=== PATIENT | male | born 1980 | race Caucasian/White ===

== ENCOUNTER 2016-09-09 11:29 | Emergency (ER) | payer OTHER ==
[~2016-09-09] VITALS: Ht 193 cm; Wt 149.9 kg
[~2016-09-09 11:29] MED LIST: ADVIN25/60 INH; ALBU0.08 INH; ALBUAER19 INH; ATOR-26 PO; CLC100 PO; DXY100 PO; EMPA1TAB3 PO; EPP3/2 IM; INSUINJ14 SC; INSUINJ4 SQ; LSN5 PO; OMEG10007 PO; OXYC5TAB PO; POLY1POW2 PO; PRD10 PO; PRT40 PO; SUCR1TAB29 PO; TRAM-10 PO
[2016-09-09 11:35] VITALS: TEMP 36.5; Ht 193 cm; Wt 149.9 kg
[2016-09-09] MEDS ORDERED: VNTHFA/IN INH (12:03)
[2016-09-09] MEDS ORDERED: DOCU100C31 PO (12:03)
[2016-09-09] MEDS ORDERED: OXYC-57 PO (12:03)
[2016-09-09] MEDS ORDERED: INSDGIPEN SQ (12:03)
[2016-09-09] MEDS ORDERED: NVLGI/PEN SQ (12:03)
[2016-09-09] MEDS ORDERED: PANT40TA PO (12:03)
--- NOTE | 2016-09-09 12:13 | DIAGNOSTIC IMAGING REPORT ---
CHEST ONE VIEW PORTABLE CLINICAL HISTORY: Shortness of breath. COMPARISON STUDY: Chest CT April 10, 2016. FINDINGS: Lung volumes are normal. There is no pneumothorax or pleural effusion. No consolidation is identified. There is no evidence of pulmonary edema. Cardiac size is within normal limits. IMPRESSION: No acute cardiopulmonary findings. Electronically signed by: Ran Gonzalez M.D. 09/09/2016 12:12 PM Dictated Date/Time: 09/09/2016 12:12 PM
[2016-09-09 12:21] LABS: BASO % 0.5 %; BASO ABS # 0.04 K/uL (0-0.2); COMPLETE YES; EOS % 1.9 %; HEMATOCRIT 44.3 % (42-52); IG% 0.1 %; LYMPH ABS # 2.91 K/uL (1.2-3.4); MEAN CELL VOLUME 82.5 fL (80-100); MEAN CORPUSCULAR HGB CONC 36.3 g/dl (32-36); MEAN PLATELET VOLUME 11.1 fL (7.4-10.4); MONO % 3.1 %; NEUT % 55.4 %; PLATELET COUNT 208 K/uL (130-400); RED BLOOD COUNT 5.37 M/uL (4.7-6.1); WHITE BLOOD COUNT 7.47 K/uL (4.8-10.8)
[2016-09-09 12:36] LABS: INR 0.9 (0.9-1.1); PARTIAL THROMBOPLASTIN RATIO 1.1; PROTHROMBIN TIME (PATIENT) 10.1 SECONDS (9.0-12.0)
[2016-09-09 12:37] VITALS: O2SAT 97
[2016-09-09] MEDS ORDERED: SODIUM CHLORIDE 0.9% 1000ML 1,000 ML IV STA ×2 (12:40→12:43)
[2016-09-09] MEDS ORDERED: KETOROLAC TROMETHAMINE 30 MG/ML VIAL IV STA (12:40)
[2016-09-09] MEDS ORDERED: ACETAMINOPHEN 500 MG TAB PO STA (12:40)
[2016-09-09] MEDS ORDERED: METHYLPREDNISOLONE 125 MG VIAL IV STA (12:43)
[2016-09-09 12:45] LABS: ALB/GLOB RATIO 1.2 (0.9-2); BUN/CREATININE RATIO 11.2 (10-20); CALCIUM 8.9 mg/dl (8.5-10.1); CREATININE 1.3 mg/dl (0.60-1.40); POTASSIUM 4.1 mmol/L (3.5-5.1)
[2016-09-09 12:57] LABS: BETA-HYDROXYBUTYRATE 0.71 mg/dL (0.2-2.81)
[2016-09-09] MEDS ORDERED: ALBUT/IPRATROP 3MG/0.5MG NEB 3 ML VIAL INH STA (13:11)
--- NOTE | 2016-09-09 13:29 | DIAGNOSTIC IMAGING REPORT ---
CT HEAD WITHOUT CONTRAST (CT) CLINICAL HISTORY: FELTON COMPARISON STUDY: 08/04/2015 TECHNIQUE: Axial CT of the brain is performed from the vertex to the skull base. IV contrast was not administered for this examination. CT DOSE: 1228.53 mGy.cm FINDINGS: No intra or extra-axial mass lesions are visualized. There is no CT evidence of acute cortical infarction. There is no evidence of midline shift. There is no acute hemorrhage. No calvarial fractures are visualized. There is no evidence of pathologic ventricular dilatation. There is no evidence of acute sinusitis IMPRESSION: Normal noncontrast head CT. Electronically signed by: Adal Pearl M.D. 09/09/2016 1:28 PM Dictated Date/Time: 09/09/2016 1:27 PM
[2016-09-09 13:44] LABS: URINE APPEARANCE CLEAR (CLEAR); URINE BILIRUBIN NEG (NEG); URINE COLOR YELLOW; URINE NITRITE NEG (NEG); URINE SPECIFIC GRAVITY 1.019 (1.000-1.030); UROBILINOGEN NEG (NEG)
[2016-09-09 13:47] LABS: MANUAL MICROSCOPIC REQUIRED? NO; REVIEW REQ? NO
[2016-09-09] MEDS ORDERED: INSULIN HUMAN REGULAR IV SCH ×2 (14:45→16:00)
[2016-09-09] MEDS ORDERED: PRED20TA PO (14:45)
[2016-09-09] MEDS ORDERED: NovoLIN-R INSULIN PER UNIT CHARGE ONE (14:52)
--- NOTE | 2016-09-09 14:59 | EMERGENCY ROOM VISIT NOTE ---
History Report prepared by Rene: Jean Flores Under the Supervision of: Dr. Dc Lucas M.D. First contact with patient: 12:37 Chief Complaint: RESPIRATORY PROBLEMS Stated Complaint: SEVERE FELTON, CHEST PAIN, SOB Nursing Triage Summary: Pt c/o headache all over worse in the back of head, started Thursday night, went 0 into Thursday and then yesterday it began again with pain in head and into neck and now it's into chest and making him SOB, used inhaler and it's not working. Associated pain in back. IDDM History of Present Illness The patient is a 36 year old male who presents to the Emergency Room with complaints of a persistent headache beginning about 2 days ago. He notes having chest pain, and shortness of breath, and adds that his pain shoot down his neck. The patient notes his symptoms are slightly relieved with laying down, and worsened with deep breaths. He notes using any inhaler at home, and took albuterol today with no relief of his symptoms. The patient admits to having diabetes, and takes insulin. Source of History: patient Onset: 2 days ago Position: head Quality: other (headache) Timing: other (persistent) Modifying Factors (Worsening): breathing (deep) Modifying Factors (Relieving): other (lying down) Associated Symptoms: + SOB, + chest pain Review of Systems See HPI for pertinent positives & negatives. A total of 10 systems reviewed and were otherwise negative. Past Medical & Surgical Medical Problems: (1) Asthma (2) Bee sting allergy (3) Bronchitis (4) Diabetes mellitus, type II (5) Dyslipidemia (6) Hypertension (7) Sleep apnea (8) Testicular discomfort (9) Tobacco use Family History Diabetes mellitus BROTHER Liver failure MOTHER Pericarditis MOTHER Stroke FATHER Social History Smoking Status: Never Smoker Alcohol Use: occasionally Marital Status: Housing Status: lives with family Occupation Status: employed Current/Historical Medications Scheduled Albuterol Hfa (Ventolin Hfa), 2-4 PUFFS INH Q6H Atorvastatin (Lipitor), 80 MG PO HS Docusate Sodium (Docusate Sodium), 100 MG PO DAILY Empagliflozin (Jardiance), 25 MG PO DAILY Epinephrine (Epipen), 0.3 MG IM UD Fish Oil ([place]-3), 1 CAP PO DAILY Fluticasone Prop/Salmeterol (Advair Diskus 250/50 60 Dose), 1 PUFF INH BID Insulin Aspart (Novolog Flexpen), UNITS SQ UD Insulin Glargine (Lantus Solostar), 60 UNITS SQ BID Pantoprazole (Protonix), 40 MG PO DAILY Prednisone (Prednisone), 20 MG PO DAILY Sucralfate (Carafate), 1 GM PO BID Scheduled PRN Oxycodone/Acetaminophen 5MG/325MG (Percocet 5MG/325MG), 1 TABLET PO Q6H PRN for Pain Polyethylene Glycol 3350 (Bulk (Polyethylene Glycol 3350), 17 GM PO TID PRN for Constipation Tramadol (Ultram), 100 MG PO Q8 PRN for Pain Allergies Coded Allergies: BEE STING (Verified Allergy, Severe, ANAPHYLAXIS, 09/09/16) Metformin (Verified Allergy, Unknown, unknown, 09/09/16) Physical Exam Vital Signs Date Time Temp Pulse Resp B/P Pulse Ox O2 Delivery O2 Flow Rate FiO2 09/09/16 15:00 94 12 153/86 94 09/09/16 13:02 89 18 124/86 95 Room Air 09/09/16 12:37 97 Room Air 09/09/16 12:06 93 09/09/16 11:49 98 Room Air 09/09/16 11:49 96 19 99 Room Air 09/09/16 11:40 96 Room Air 09/09/16 11:35 36.5 100 22 139/93 97 Room Air Physical Exam CONSTITUTIONAL: The patient is in mild distress. HEENT: No icterus, moist mucous membranes NECK: No meningismus, trachea is midline. CARDIOVASCULAR: Regular rate, normal perfusion RESPIRATORY: Wheezing in all lees. GASTROINTESTINAL: Non-tender GENITOURINARY: No flank tenderness MUSCULOSKELETAL: Full range of motion NEUROLOGIC: No acute gross focal deficits. PSYCHIATRIC: Normal affect SKIN: Normal for ethnicity. Medical Decision & Procedures ER Provider Diagnostic Interpretation: Radiology results as stated below per my review and radiologist interpretation. CT HEAD WITHOUT CONTRAST (CT) FINDINGS: No intra or extra-axial mass lesions are visualized. There is no CT evidence of acute cortical infarction. There is no evidence of midline shift. There is no acute hemorrhage. No calvarial fractures are visualized. There is no evidence of pathologic ventricular dilatation. There is no evidence of acute sinusitis IMPRESSION: Normal noncontrast head CT. Electronically signed by: Adal Pearl M.D. 09/09/2016 1:28 PM Dictated Date/Time: 09/09/2016 1:27 PM CHEST ONE VIEW PORTABLE FINDINGS: Lung volumes are normal. There is no pneumothorax or pleural effusion. No consolidation is identified. There is no evidence of pulmonary edema. Cardiac size is within normal limits. IMPRESSION: No acute cardiopulmonary findings. Electronically signed by: Ran Gonzalez M.D. 09/09/2016 12:12 PM Dictated Date/Time: 09/09/2016 12:12 PM Laboratory Results 09/09/16 12:05 Red Blood Count 5.37, Mean Corpuscular Volume 82.5, Mean Corpuscular Hemoglobin 30.0, Mean Corpuscular Hemoglobin Concent 36.3, Mean Platelet Volume 11.1, Neutrophils (%) (Auto) 55.4, Lymphocytes (%) (Auto) 39.0, Monocytes (%) (Auto) 3.1, Eosinophils (%) (Auto) 1.9, Basophils (%) (Auto) 0.5, Neutrophils # (Auto) 4.14, Lymphocytes # (Auto) 2.91, Monocytes # (Auto) 0.23, Eosinophils # (Auto) 0.14, Basophils # (Auto) 0.04 09/09/16 12:05 Test 09/09/16 12:05 09/09/16 12:10 09/09/16 13:00 09/09/16 13:09 White Blood Count 7.47 K/uL (4.8-10.8) Red Blood Count 5.37 M/uL (4.7-6.1) Hemoglobin 16.1 g/dL (14.0-18.0) Hematocrit 44.3 % (42-52) Mean Corpuscular Volume 82.5 fL (80-100) Mean Corpuscular Hemoglobin 30.0 pg (25-34) Mean Corpuscular Hemoglobin Concent 36.3 g/dl (32-36) Platelet Count 208 K/uL (130-400) Mean Platelet Volume 11.1 fL (7.4-10.4) Neutrophils (%) (Auto) 55.4 % Lymphocytes (%) (Auto) 39.0 % Monocytes (%) (Auto) 3.1 % Eosinophils (%) (Auto) 1.9 % Basophils (%) (Auto) 0.5 % Neutrophils # (Auto) 4.14 K/uL (1.4-6.5) Lymphocytes # (Auto) 2.91 K/uL (1.2-3.4) Monocytes # (Auto) 0.23 K/uL (0.11-0.59) Eosinophils # (Auto) 0.14 K/uL (0-0.5) Basophils # (Auto) 0.04 K/uL (0-0.2) RDW Standard Deviation 37.2 fL (36.4-46.3) RDW Coefficient of Variation 12.4 % (11.5-14.5) Immature Granulocyte % (Auto) 0.1 % Immature Granulocyte # (Auto) 0.01 K/uL (0.00-0.02) Prothrombin Time 10.1 SECONDS (9.0-12.0) Prothromb Time International Ratio 0.9 (0.9-1.1) Activated Partial Thromboplast Time 28.7 SECONDS (21.0-31.0) Partial Thromboplastin Ratio 1.1 D-Dimer < 190 ug/L FEU (0-500) Anion Gap 11.0 mmol/L (3-11) Est Creatinine Clear Calc Drug Dose 125.7 ml/min Estimated GFR () 81.9 Estimated GFR (Non- 70.7 BUN/Creatinine Ratio 11.2 (10-20) Calcium Level 8.9 mg/dl (8.5-10.1) Total Bilirubin 0.5 mg/dl (0.2-1) Aspartate Amino Transf (AST/SGOT) 19 U/L (15-37) Alanine Aminotransferase (ALT/SGPT) 45 U/L (12-78) Alkaline Phosphatase 109 U/L (45-117) Total Creatine Kinase 100 U/L (39-308) Total Protein 7.6 gm/dl (6.4-8.2) Albumin 4.2 gm/dl (3.4-5.0) Globulin 3.4 gm/dl (2.5-4.0) Albumin/Globulin Ratio 1.2 (0.9-2) Beta-Hydroxybutyric Acid 0.71 mg/dL (0.2-2.81) Chemistry Specimen Hemolysis Bedside Troponin I 0.000 ng/ml (0-0.045) Urine Color YELLOW Urine Appearance CLEAR (CLEAR) Urine pH 5.0 (4.5-7.5) Urine Specific [place] 1.019 (1.000-1.030) Urine Protein NEG (NEG) Urine Glucose (UA) 3+ (NEG) Urine Ketones NEG (NEG) Urine Occult Blood NEG (NEG) Urine Nitrite NEG (NEG) Urine Bilirubin NEG (NEG) Urine Urobilinogen NEG (NEG) Urine Leukocyte Esterase NEG (NEG) Influenza Type A Antigen Neg for Influ A (NEG) Influenza Type B Antigen Neg for Influ B (NEG) Labs reviewed by ED physician. Medications Administered Medications (Trade) Dose Ordered Sig/Ca Route Start Time Stop Time Status Last Admin Dose Admin Sodium Chloride (Nss 1000ml) 1,000 ml @ 0 mls/hr Q0M STAT IV 09/09/16 12:40 09/09/16 12:43 DC 09/09/16 13:00 999 MLS/HR Acetaminophen (Tylenol Tab) 1,000 mg NOW STAT PO 09/09/16 12:40 09/09/16 12:43 DC 09/09/16 12:58 1,000 MG Ketorolac Tromethamine (Toradol Inj) 30 mg NOW STAT IV 09/09/16 12:40 09/09/16 12:44 DC 09/09/16 12:58 30 MG Methylprednisolone Sodium Succinate 125 mg 125 mg NOW STAT IV 09/09/16 12:43 09/09/16 12:44 DC 09/09/16 12:57 125 MG Sodium Chloride (Nss 1000ml) 1,000 ml @ 0 mls/hr Q0M STAT IV 09/09/16 12:43 09/09/16 12:45 DC 09/09/16 13:29 999 MLS/HR Insulin Human Regular (novoLIN-R) 4 units ACHS IV 09/09/16 16:00 09/09/16 16:04 DC 09/09/16 14:58 4 UNITS Albuterol/ Ipratropium (Duoneb) 3 ml QIDR STAT INH 09/09/16 13:11 09/09/16 13:12 DC 09/09/16 13:28 3 ML ECG Indication: other (headache) Rate (beats per minute): 97 Rhythm: sinus rhythm Findings: nonspecific-ST abn, no ectopy, other (normal axis) ED Course 1239: Past medical records reviewed. The patient was evaluated in room B11B. A complete history and physical examination was performed. 1240: Ordered Toradol Inj 30 mg IV, Tylenol Tab 1,000 mg PO, and NSS 1,000 ml @ 0 mls/hr Wide Open IV. 1243: Ordered NSS 1,000 ml @ 0 mls/hr Wide Open IV, and Solu-Medrol IV 125 mg IV. 1311: Ordered Duoneb 3 ml INH. 1445: Ordered Insulin Human Regular 4 units IV. 1450: Upon reexamination the patient is doing well. I discussed results and treatment plan with the patient. He verbalizes agreement and understanding. The patient is ready for discharge. 1600: Ordered Insulin Human Regular 4 units IV, and Duoben 3 ml INH. Medical Decision Differentials include viral syndrome. 36-year-old presented to emergency department for complaints consistent with viral syndrome including especially strong headache without focal neurologic complaints. Mild wheezing noted on exam at the use of occasional albuterol MDI as needed at home. Given site Medrol IV and counseled regarding monitoring of his glucose at home the context of his diabetes. Rx prednisone. Impression Primary Impression: Viral syndrome Additional Impression: Wheezing Scribe Attestation The scribe's documentation has been prepared under my direction and personally reviewed by me in its entirety. I confirm that the note above accurately reflects all work, treatment, procedures, and medical decision making performed by me. Departure Information Dispostion Home / Self-Care Prescriptions Prednisone (Prednisone) 20 Mg Tab 20 MG PO DAILY for 4 Days, #4 TAB Prov: Dc Lucas MD 09/09/16 Referrals Kannan Bautista M.D. (PCP) Forms WORK / SCHOOL INSTRUCTIONS, HOME CARE DOCUMENTATION FORM, IMPORTANT VISIT INFORMATION Patient Instructions My [facility], ED Wheezing, ED URI Viral Problem Qualifiers
[2016-09-09 15:00] VITALS: BP 153/86; PULSE 94; O2SAT 94
[2016-09-09] MEDS ORDERED: ALBUT/IPRATROP 3MG/0.5MG NEB 3 ML VIAL INH SCH (16:00)
[2016-10-18] MEDS ORDERED: NCDT21 TD (14:27)
[2016-10-18] MEDS ORDERED: OXYC-57 PO (14:27)
== END 2016-09-09 15:06 | disposition home or self-care (01) ==
LOC: C.EDB 11:30
DX: B34.9 Viral infection, unspecified (principal); R06.2 Wheezing; E11.9 Type 2 diabetes mellitus without complications; I10 Essential (primary) hypertension; E78.5 Hyperlipidemia, unspecified; Z79.899 Other long term (current) drug therapy; Z79.4 Long term (current) use of insulin; Z83.3 Family history of diabetes mellitus; Z83.79 Family history of other diseases of the digestive system; Z82.49 Family history of ischemic heart disease and other diseases of the circulatory system; Z82.3 Family history of stroke

== ENCOUNTER 2016-10-07 00:40 | Emergency (ER) | payer OTHER ==
[~2016-10-07] VITALS: Ht 193 cm; Wt 145.5 kg
[~2016-10-07 00:40] MED LIST changes: -ALBU0.08 INH; -ALBUAER19 INH; -CLC100 PO; +DOCU100C31 PO; -DXY100 PO; +INSDGIPEN SQ; -INSUINJ14 SC; -INSUINJ4 SQ; -LSN5 PO; +NVLGI/PEN SQ; +OXYC-57 PO; -OXYC5TAB PO; +PANT40TA PO; -PRD10 PO; -PRT40 PO; +VNTHFA/IN INH
[2016-10-07 00:46] VITALS: Ht 193 cm; Wt 145.5 kg
[2016-10-07] MEDS ORDERED: MoRPHine SULFATE 4 MG/ML 1 ML CARP\\VIAL IV STA ×2 (00:55→02:33)
[2016-10-07] MEDS ORDERED: ONDANSETRON INJ 2 MG/ML 2 ML VIAL IV STA (00:55)
[2016-10-07] MEDS ORDERED: SODIUM CHLORIDE 0.9% 1000ML 1,000 ML IV STA ×2 (00:55→02:18)
[2016-10-07 01:59] LABS: HEMATOCRIT 45.8 % (42-52); MEAN CELL VOLUME 82.7 fL (80-100); MEAN CORPUSCULAR HEMOGLOBIN 30.9 pg (25-34); MEAN CORPUSCULAR HGB CONC 37.3 g/dl (32-36); MEAN PLATELET VOLUME 11.5 fL (7.4-10.4); PLATELET COUNT 208 K/uL (130-400); RED BLOOD COUNT 5.54 M/uL (4.7-6.1); WHITE BLOOD COUNT 6.95 K/uL (4.8-10.8)
[2016-10-07 02:03] LABS: BASO % 0.6 %; BASO ABS # 0.04 K/uL (0-0.2); COMPLETE YES; EOS % 2.2 %; IG% 0.3 %; LYMPH % 38.6 %; LYMPH ABS # 2.68 K/uL (1.2-3.4); MONO % 3.9 %; NEUT % 54.4 %
[2016-10-07 02:15] LABS: ALKALINE PHOSPHATASE 144 U/L (45-117); ALT/SGPT 56 U/L (12-78); BLOOD UREA NITROGEN 18 mg/dl (7-18); BUN/CREATININE RATIO 12.1 (10-20); CALCIUM 9.4 mg/dl (8.5-10.1); CARBON DIOXIDE 23 mmol/L (21-32); CHLORIDE 96 mmol/L (98-107); GLUCOSE 409 mg/dl (70-99); SODIUM 135 mmol/L (136-145)
[2016-10-07 02:27] LABS: BETA-HYDROXYBUTYRATE 1.54 mg/dL (0.2-2.81)
[2016-10-07 03:14] LABS: AST/SGOT 20 U/L (15-37); POTASSIUM 4.3 mmol/L (3.5-5.1)
[2016-10-07] MEDS ORDERED: NovoLIN-R INSULIN PER UNIT CHARGE SC STA (03:20)
[2016-10-07] MEDS ORDERED: OXYCODONE IR HOME PACK PO ONE (03:45)
[2016-10-07] MEDS ORDERED: ONDANSETRON HOME PACK 4MG OD TAB PO ONE (03:45)
--- NOTE | 2016-10-07 04:12 | EMERGENCY ROOM VISIT NOTE ---
History First contact with patient: 00:52 Chief Complaint: ABDOMINAL PAIN Stated Complaint: UPPER ABD PAIN, VOMITING, DIARRHEA, BACK PAIN History of Present Illness The patient is a 36 year old male who presents to the Emergency Room with complaints of nausea, vomiting, diarrhea and right upper quadrant pain for the past day. Patient still has gallbladder. He describes pain as aching, ranging in severity 7 out of 10. Worse with eating and better with rest. Patient states his blood sugars were in the 600s today. Patient denies chest pain, dyspnea, cough, congestion, urinary symptoms. No blood or black in the vomit or stool. Review of Systems See HPI for pertinent positives & negatives. A total of 10 systems reviewed and were otherwise negative. Past Medical/Surgical History Medical Problems: (1) Asthma (2) Bee sting allergy (3) Bronchitis (4) Diabetes mellitus, type II (5) Dyslipidemia (6) Hypertension (7) Sleep apnea (8) Testicular discomfort (9) Tobacco use Family History Diabetes mellitus BROTHER Liver failure MOTHER Pericarditis MOTHER Stroke FATHER Social History Smoking Status: Current Every Day Smoker Alcohol Use: occasionally Marital Status: Housing Status: lives with family Occupation Status: employed Current/Historical Medications Scheduled Albuterol Hfa (Ventolin Hfa), 2 PUFFS INH Q6H Atorvastatin (Lipitor), 80 MG PO HS Docusate Sodium (Docusate Sodium), 100 MG PO DAILY Empagliflozin (Jardiance), 25 MG PO DAILY Epinephrine (Epipen), 0.3 MG IM UD Fish Oil ([place]-3), 1 CAP PO DAILY Fluticasone Prop/Salmeterol (Advair Diskus 250/50 60 Dose), 1 PUFF INH BID Insulin Aspart (Novolog Flexpen), UNITS SQ UD Insulin Glargine (Lantus Solostar), 60 UNITS SQ BID Pantoprazole (Protonix), 40 MG PO DAILY Sucralfate (Carafate), 1 GM PO BID Scheduled PRN Oxycodone/Acetaminophen 5MG/325MG (Percocet 5MG/325MG), 1 TABLET PO Q6H PRN for Pain Polyethylene Glycol 3350 (Bulk (Polyethylene Glycol 3350), 17 GM PO TID PRN for Constipation Tramadol (Ultram), 100 MG PO Q8 PRN for Pain Allergies Coded Allergies: BEE STING (Verified Allergy, Severe, ANAPHYLAXIS, 10/07/16) Metformin (Verified Allergy, Unknown, unknown, 10/07/16) Physical Exam Vital Signs Date Time Temp Pulse Resp B/P Pulse Ox O2 Delivery O2 Flow Rate FiO2 10/07/16 02:32 94 18 125/81 95 Room Air 10/07/16 01:19 98 10/07/16 01:13 Room Air 10/07/16 01:13 Room Air 10/07/16 00:46 36.6 104 20 140/103 96 Room Air Physical Exam VITALS: Vitals are noted on the nurse's note and reviewed by myself. Vital signs stable. GENERAL: White male, in no acute distress, nondiaphoretic, well-developed well- nourished. SKIN: The skin was without rashes, erythema, edema, or bruising. There is no tenting of the skin. Capillary reflex less than 2 seconds. HEAD: Normocephalic atraumatic. EARS: External auditory canals clear, tympanic membranes pearly guerrier without erythema or effusion bilaterally. EYES: Pupils equal round and reactive to light and accommodation. Conjunctivae without injection, sclerae without icterus. Extraocular movements intact. NOSE: Patent, turbinates without inflammation or discharge. MOUTH: Mucous membranes mildly dry. Pharynx without erythema or exudate. Uvula midline. Airway patent. Tongue does not deviate. NECK: Supple without nuchal rigidity. No lymphadenopathy. No thyromegaly. Cervical spine is nontender. No JVD. HEART: Regular rate and rhythm LUNGS: Clear to auscultation bilaterally without wheezes, rales or rhonchi. No dullness to percussion. No retractions or accessory muscle use. ABDOMEN: Positive bowel sounds x 4. Normal tympanic percussion. Soft, protuberant, obese, tender to palpation right upper quadrant, without masses or organomegaly. No CVA tenderness. No guarding or rebound tenderness. MUSCULOSKELETAL: No muscle atrophy, erythema, noted. NEURO: Patient was alert and oriented to person place and time. Normal sensation to light and sharp touch. No focal neurological deficits. Medical Decision & Procedures Laboratory Results 10/07/16 01:10 Red Blood Count 5.54, Mean Corpuscular Volume 82.7, Mean Corpuscular Hemoglobin 30.9, Mean Corpuscular Hemoglobin Concent 37.3, Mean Platelet Volume 11.5, Neutrophils (%) (Auto) 54.4, Lymphocytes (%) (Auto) 38.6, Monocytes (%) (Auto) 3.9, Eosinophils (%) (Auto) 2.2, Basophils (%) (Auto) 0.6, Neutrophils # (Auto) 3.79, Lymphocytes # (Auto) 2.68, Monocytes # (Auto) 0.27, Eosinophils # (Auto) 0.15, Basophils # (Auto) 0.04 10/07/16 01:10 10/07/16 02:30 Test 10/07/16 01:10 10/07/16 02:30 10/07/16 03:52 White Blood Count 6.95 K/uL (4.8-10.8) Red Blood Count 5.54 M/uL (4.7-6.1) Hemoglobin 17.1 g/dL (14.0-18.0) Hematocrit 45.8 % (42-52) Mean Corpuscular Volume 82.7 fL (80-100) Mean Corpuscular Hemoglobin 30.9 pg (25-34) Mean Corpuscular Hemoglobin Concent 37.3 g/dl (32-36) Platelet Count 208 K/uL (130-400) Mean Platelet Volume 11.5 fL (7.4-10.4) Neutrophils (%) (Auto) 54.4 % Lymphocytes (%) (Auto) 38.6 % Monocytes (%) (Auto) 3.9 % Eosinophils (%) (Auto) 2.2 % Basophils (%) (Auto) 0.6 % Neutrophils # (Auto) 3.79 K/uL (1.4-6.5) Lymphocytes # (Auto) 2.68 K/uL (1.2-3.4) Monocytes # (Auto) 0.27 K/uL (0.11-0.59) Eosinophils # (Auto) 0.15 K/uL (0-0.5) Basophils # (Auto) 0.04 K/uL (0-0.2) RDW Standard Deviation 36.8 fL (36.4-46.3) RDW Coefficient of Variation 12.2 % (11.5-14.5) Immature Granulocyte % (Auto) 0.3 % Immature Granulocyte # (Auto) 0.02 K/uL (0.00-0.02) Red Blood Cell Morphology Unremarkable Anion Gap 16.0 mmol/L (3-11) Est Creatinine Clear Calc Drug Dose 107.2 ml/min Estimated GFR () 68.9 Estimated GFR (Non- 59.5 BUN/Creatinine Ratio 12.1 (10-20) Calcium Level 9.4 mg/dl (8.5-10.1) Total Bilirubin 0.4 mg/dl (0.2-1) Alanine Aminotransferase (ALT/SGPT) 56 U/L (12-78) Alkaline Phosphatase 144 U/L (45-117) Troponin I < 0.015 ng/ml (0-0.045) Total Protein 7.9 gm/dl (6.4-8.2) Albumin 4.2 gm/dl (3.4-5.0) Lipase 134 U/L (73-393) Beta-Hydroxybutyric Acid 1.54 mg/dL (0.2-2.81) Direct Bilirubin < 0.1 mg/dl (0-0.2) Aspartate Amino Transf (AST/SGOT) 20 U/L (15-37) Bedside Glucose 286 mg/dl (70-99) Medications Administered Medications (Trade) Dose Ordered Sig/Ca Route Start Time Stop Time Status Last Admin Dose Admin Sodium Chloride (Nss 1000ml) 1,000 ml @ 999 mls/hr Q1H1M STAT IV 10/07/16 00:55 10/07/16 01:55 DC 10/07/16 01:16 999 MLS/HR Ondansetron HCl (Zofran Inj) 4 mg NOW STAT IV 10/07/16 00:55 10/07/16 00:57 DC 10/07/16 01:16 4 MG Morphine Sulfate 4 mg 4 mg NOW STAT IV 10/07/16 00:55 10/07/16 00:57 DC 10/07/16 01:16 4 MG Sodium Chloride (Nss 1000ml) 1,000 ml @ 999 mls/hr Q1H1M STAT IV 10/07/16 02:18 10/07/16 03:18 DC 10/07/16 02:22 999 MLS/HR Morphine Sulfate (MoRPHine SULFATE INJ) 4 mg NOW STAT IV 10/07/16 02:33 10/07/16 02:34 DC 10/07/16 03:04 4 MG Insulin Human Regular (novoLIN-R U-100 PER UNIT) 10 units NOW STAT SC 10/07/16 03:20 10/07/16 03:21 DC 10/07/16 03:33 10 UNITS ED Course Prior records/ancillary studies reviewed. Triage Nursing notes reviewed. Additional history obtained from family The patient's history was concerning for abdominal pain. Differential diagnosis: Etiologies such as appendicitis, diverticulitis, PUD, biliary pathology, UTI, pancreatitis, obstruction, mesenteric ischemia, aortic pathology, infections, inflammatory bowel disease, renal colic, as well as others were entertained. Physical examination findings: As above. ER treatment provided: Morphine, Zofran, IV fluids On reassessment the patient felt better. Diagnostics interpreted by me: ECG: Normal sinus, normal intervals, no acute ST-T wave changes. Impression normal sinus rhythm interpreted by myself The labs revealed hyperglycemia without DKA Imaging studies: US RUQ: Compared to abdominal ultrasound 12/22/2015 Limited by narrow sonographic window. Gallbladder sludge. No evidence of acute cholecystitis. No intra-or extrahepatic biliary ductal dilation. Marked hepatomegaly. Increased hepatic echogenicity, can be seen in hepatic steatosis. No right hydronephrosis. No right upper quadrant free fluid. Radiologist: Jessi Chilel M.D. Chest x-ray with no acute consolidation or pneumothorax or free air per my interpretation Exam and history seem consistent with biliary colic with hyperglycemia without DKA. Patient was advised to get high the scan scheduled outpatient. He's had multiple CT scans. He feels much better now. He was no longer vomiting. He was advised to monitor his blood sugars. He was advised to return to the ER immediately for severe pain, fevers, vomiting, worsening signs or symptoms or as needed. Patient did not have a white count. No elevated T bili or LFTs. By the evaluation outlined above emergent etiologies such as appendicitis, diverticulitis, PUD, UTI, pancreatitis, obstruction, mesenteric ischemia, aortic pathology, infections, inflammatory bowel disease, renal colic, as well as others were deemed relatively unlikely. The pt informed about the findings as listed above. All questions were answered and pleased with the treatment. Return instructions were outlined and the patient was discharged in stable condition. Outpatient prescription management: zofran Referral: The patient was referred back to their primary care physician for follow-up in 2 to 3 days for a recheck of the current condition. Case reviewed with my attending Medical Decision As above Impression Primary Impression: Biliary colic Additional Impression: Nausea vomiting and diarrhea Departure Information Dispostion Home / Self-Care Condition GOOD Referrals Kannan Bautista M.D. (PCP) Patient Instructions My [facility] Additional Instructions DO NOT drive, drink alcohol, operate machinery, or perform dangerous activities today. You were given medications in the ER that can affect your ability to safely function or operate a vehicle. Ibuprofen(Motrin, Advil) may be used for fever or pain. Use 600mg every six hours as needed. Take with food. Avoid using more than 2400mg in a 24 hour period. Do not use 2400mg per day for more than three consecutive days without physician direction. Prolonged inappropriate use can lead to stomach upset or ulcers. (AND/OR) Acetaminophen(Tylenol) may be used for fever or pain. Use 1000mg every six hours as needed. Avoid using more than 3000mg in a 24 hour period. Zofran 4mg: Take one every six hours as needed for nausea. Avoid alcohol, operating machinery or dangerous equipment, working on ladders or roofs, DRIVING , or situations where being under the influence may be dangerous. Rest and drink plenty of fluids as tolerated. Slow sips of water or sports drinks are recommended instead of large amounts all at once. Continue current medications. Once your stomach is settled start with a clear liquid diet (jello, soup broth, etc.) and then advance as tolerated. You should avoid full, heavy meals for about 24 hrs from the time your symptoms resolved. Return to the ER immediately for worsening or persistent abdominal pain, vomiting, fevers, chest pains, difficulty breathing, black or bloody stools, worsening of your condition, or as needed. Follow up with your primary physician in 24 hours for a recheck of your current condition and for outpatient HIDA scan for further workup on your gallbladder. Problem Qualifiers
[2016-10-07 04:19] VITALS: BP 136/79; PULSE 90; TEMP 36.7; O2SAT 94
--- NOTE | 2016-10-07 06:40 | DIAGNOSTIC IMAGING REPORT ---
BILIARY ULTRASOUND CLINICAL HISTORY: Right upper quadrant abdominal pain COMPARISON STUDY: 12/22/2015 FINDINGS: The pancreas is partially obscured overlying bowel gas. No hepatic masses are visualized. The liver is of increased echogenicity, nonspecific finding most often seen in hepatic steatosis. There is no ductal dilatation. The common buttock measures 4 mm. No gallstones are visualized. There is a small amount of sludge in the gallbladder. There is no right-sided hydronephrosis. The study was difficult from a technical standpoint due to the patient's large body habitus. IMPRESSION: 1. Hepatomegaly and increased hepatic echogenicity, a finding likely secondary to hepatic steatosis 2. Sludge in the gallbladder. No shadowing calculi identified 3. No evidence of ductal dilatation. Electronically signed by: Adal Pearl M.D. 10/07/2016 6:38 AM Dictated Date/Time: 10/07/2016 6:37 AM
--- NOTE | 2016-10-07 07:17 | DIAGNOSTIC IMAGING REPORT ---
CHEST ONE VIEW PORTABLE CLINICAL HISTORY: Atypical chest pain. Right upper quadrant abdominal pain. COMPARISON STUDY: September 09, 2016 FINDINGS: The cardiac and mediastinal contours are normal. There is no evidence of focal pulmonary consolidation. There is no evidence of failure. No pleural effusions are visualized.[ No free intraperitoneal air is visualized. IMPRESSION: No active disease in the chest. Electronically signed by: Adal Pearl M.D. 10/07/2016 7:15 AM Dictated Date/Time: 10/07/2016 7:15 AM
[2016-10-18] MEDS ORDERED: OXYC-57 PO (14:27)
[2016-10-18] MEDS ORDERED: NCDT21 TD (14:27)
== END 2016-10-07 04:20 | disposition home or self-care (01) ==
LOC: C.EDB 00:42 → C.EDA 04:20
DX: K80.50 Calculus of bile duct without cholangitis or cholecystitis without obstruction (principal); R19.7 Diarrhea, unspecified; J45.909 Unspecified asthma, uncomplicated; E11.65 Type 2 diabetes mellitus with hyperglycemia; I10 Essential (primary) hypertension; E78.5 Hyperlipidemia, unspecified; Z83.3 Family history of diabetes mellitus; Z83.79 Family history of other diseases of the digestive system; Z82.3 Family history of stroke; Z82.49 Family history of ischemic heart disease and other diseases of the circulatory system; F17.200 Nicotine dependence, unspecified, uncomplicated; Z79.4 Long term (current) use of insulin; Z79.899 Other long term (current) drug therapy

== ENCOUNTER 2016-10-16 20:15 | Observation (INO) | payer OTHER ==
[~2016-10-16] VITALS: Ht 193 cm; Wt 152.4 kg
[2016-10-16] MEDS ORDERED: ONDANSETRON INJ 2 MG/ML 2 ML VIAL IV STA (21:26)
[2016-10-16] MEDS ORDERED: SODIUM CHLORIDE 0.9% 1000ML 1,000 ML IV STA ×2 (21:26)
[2016-10-16] MEDS ORDERED: HYDROmorphone INJ 2 MG/ML SYR/VIAL IV STA (21:26)
--- NOTE | 2016-10-16 22:08 | DIAGNOSTIC IMAGING REPORT ---
CHEST ONE VIEW PORTABLE CLINICAL HISTORY: Chest and abdominal pain. COMPARISON STUDY: Chest radiograph October 07, 2016. FINDINGS: Lung volumes are normal. There is no pneumothorax or pleural effusion. There is no consolidation to suggest pneumonia. Cardiac size is at the upper limits of normal. There is no evidence of pulmonary edema. This study is mildly compromised by motion artifact. IMPRESSION: No acute cardiopulmonary findings. Electronically signed by: Ran Gonzalez M.D. 10/16/2016 10:07 PM Dictated Date/Time: 10/16/2016 10:06 PM
[2016-10-16 23:24] LABS: BLOOD UREA NITROGEN 17 mg/dl (7-18); GLUCOSE 173 mg/dl (70-99)
[2016-10-16 23:25] LABS: ALKALINE PHOSPHATASE 122 U/L (45-117); ALT/SGPT 173 U/L (12-78); AST/SGOT 74 U/L (15-37); BUN/CREATININE RATIO 15.1 (10-20); CALCIUM 9.4 mg/dl (8.5-10.1); CARBON DIOXIDE 29 mmol/L (21-32); CHLORIDE 102 mmol/L (98-107); POTASSIUM 4.4 mmol/L (3.5-5.1); SODIUM 142 mmol/L (136-145)
[2016-10-17] VITALS (12 sets, daily range): BP systolic 121–155; BP diastolic 70–93; PULSE 78–102; TEMP 35.9–36.9; O2SAT 90–96; Ht 193 cm; Wt 152.4 kg
[2016-10-17] MEDS ORDERED: MoRPHine SULFATE 4 MG/ML 1 ML CARP\\VIAL IV STA
[2016-10-17 00:16] LABS: HEMATOCRIT 45.2 % (42-52); MEAN CELL VOLUME 84.2 fL (80-100); MEAN CORPUSCULAR HEMOGLOBIN 31.8 pg (25-34); MEAN CORPUSCULAR HGB CONC 37.8 g/dl (32-36); MEAN PLATELET VOLUME 11.6 fL (7.4-10.4); PLATELET COUNT 200 K/uL (130-400); RED BLOOD COUNT 5.37 M/uL (4.7-6.1); WHITE BLOOD COUNT 7.74 K/uL (4.8-10.8)
[2016-10-17 00:31] LABS: BASO ABS # 0.08 K/uL (0-0.2); COMPLETE YES; VARIANT LYM ABS # 0.85 K/uL
[2016-10-17] MEDS ORDERED: IV FLUIDS COMPLETED PRN (01:15)
[2016-10-17] MEDS ORDERED: ONDANSETRON INJ 2 MG/ML 2 ML VIAL IV PRN (01:30)
[2016-10-17] MEDS ORDERED: LEVALBUTEROL/IPRATROPIUM NEB INH PRN (01:30)
[2016-10-17] MEDS ORDERED: GLUCAGON FOR INJ 1 MG VIAL SQ PRN (01:30)
[2016-10-17] MEDS ORDERED: POLYETHYLENE (MIRALAX) 17 GM PACK PO PRN (01:30)
[2016-10-17] MEDS ORDERED: TRAMADOL HCL 50 MG TAB PO PRN (01:30)
[2016-10-17] MEDS ORDERED: LORAZEPAM 2 MG/ML 1 ML VIAL IV PRN (01:30)
[2016-10-17] MEDS ORDERED: ACETAMINOPHEN 325 MG TAB PO PRN (01:30)
[2016-10-17] MEDS ORDERED: GLUCOSE 40% GEL 15 GM TUBE PO PRN (01:30)
[2016-10-17] MEDS ORDERED: KETOROLAC TROMETHAMINE 30 MG/ML VIAL IV PRN (01:30)
[2016-10-17] MEDS ORDERED: PROMETHAZINE HCL INJ 12.5 MG in SODIUM CHLORIDE 0.9% 50ML 50 ML IV PRN (01:30)
[2016-10-17] MEDS ORDERED: GLUCOSE 10 TABS/TUBE PO PRN (01:30)
[2016-10-17] MEDS ORDERED: DEXTROSE 50% 50 ML SYR IV PRN (01:30)
[2016-10-17] MEDS ORDERED: IPRATROPIUM BROMIDE NEB SOLN 0.02% 2.5 ML VIAL INH PRN (01:45)
[2016-10-17] MEDS ORDERED: LEVALBUTEROL 1.25MG/0.5ML NEB INH PRN (01:45)
[2016-10-17] MEDS: HYDROmorphone INJ 1 MG/ML SYR IV PRN ×5 (01:53→23:31)
[2016-10-17] MEDS: SODIUM CHLORIDE 0.45% 1000ML 1,000 ML IV SCH ×2 (01:54→18:26)
[2016-10-17] MEDS ORDERED: INSULIN GLARGINE SOLOSTAR 100 UNITS/ML 3 ML PEN SQ ONE (02:15)
[2016-10-17] MEDS ORDERED: NURSING VERBAL MED ORDER ONE (02:30)
--- NOTE | 2016-10-17 03:28 | EMERGENCY ROOM VISIT NOTE ---
History First contact with patient: 21:22 Chief Complaint: ABDOMINAL PAIN Stated Complaint: ABDOMINAL PAIN Nursing Triage Summary: Pt reports RUQ started two weeks ago and has worsened. Home med/Vicodin is not helping the abd pain. Pt reports PMH: DM, pancreatitis, osteomyelitis History of Present Illness The patient is a 36 year old male who presents to the Emergency Room with complaints of right upper quadrant abdominal pain with nausea and vomiting for the past 2 weeks he was suppose to have a HIDA scan on Thursday but was canceled due to the weather and has one scheduled for tomorrow and has appointment with surgery next week. Patient states his gallbladder pain has been getting worse. He describes it as aching, ranging in severity 7 out of 10. Nothing makes it better or worse. Patient denies chest pain, dyspnea, fever, chills, cough, congestion, diarrhea, back pain, urinary symptoms. He is unsure who the surgeon is but states it is with [facility]. Review of Systems See HPI for pertinent positives & negatives. A total of 10 systems reviewed and were otherwise negative. Past Medical/Surgical History Medical Problems: (1) Abdominal pain (2) Asthma (3) Bee sting allergy (4) Bronchitis (5) Diabetes mellitus, type II (6) Dyslipidemia (7) Hypertension (8) Sleep apnea (9) Testicular discomfort (10) Tobacco use Family History Diabetes mellitus BROTHER Liver failure MOTHER Pericarditis MOTHER Stroke FATHER Social History Smoking Status: Current Every Day Smoker Alcohol Use: occasionally Marital Status: Housing Status: lives with family Occupation Status: employed Current/Historical Medications Scheduled Albuterol Hfa (Ventolin Hfa), 2 PUFFS INH Q6H Atorvastatin (Lipitor), 80 MG PO HS Docusate Sodium (Docusate Sodium), 100 MG PO DAILY Empagliflozin (Jardiance), 25 MG PO DAILY Epinephrine (Epipen), 0.3 MG IM UD Fish Oil ([place]-3), 1 CAP PO DAILY Fluticasone Prop/Salmeterol (Advair Diskus 250/50 60 Dose), 1 PUFF INH BID Insulin Aspart (Novolog Flexpen), UNITS SQ UD Insulin Glargine (Lantus Solostar), 60 UNITS SQ BID Pantoprazole (Protonix), 40 MG PO DAILY Sucralfate (Carafate), 1 GM PO BID Scheduled PRN Oxycodone/Acetaminophen 5MG/325MG (Percocet 5MG/325MG), 1 TABLET PO Q6H PRN for Pain Polyethylene Glycol 3350 (Bulk (Polyethylene Glycol 3350), 17 GM PO TID PRN for Constipation Tramadol (Ultram), 100 MG PO Q8 PRN for Pain Allergies Coded Allergies: BEE STING (Verified Allergy, Severe, ANAPHYLAXIS, 10/16/16) Metformin (Verified Allergy, Unknown, unknown, 10/16/16) Physical Exam Vital Signs Date Time Temp Pulse Resp B/P Pulse Ox O2 Delivery O2 Flow Rate FiO2 10/17/16 00:13 93 18 126/84 95 Room Air 10/16/16 22:47 89 10/16/16 22:38 89 17 132/102 97 10/16/16 22:05 Room Air 10/16/16 22:05 Room Air 10/16/16 20:21 36.8 97 20 159/92 96 Room Air Pain Rating (0-10): 4.0 Physical Exam VITALS: Vitals are noted on the nurse's note and reviewed by myself. Vital signs stable. GENERAL: Pleasant male, in no acute distress, nondiaphoretic, well-developed well-nourished. SKIN: The skin was without rashes, erythema, edema, or bruising. There is no tenting of the skin. Capillary reflex less than 2 seconds. HEAD: Normocephalic atraumatic. EARS: External auditory canals clear, tympanic membranes pearly guerrier without erythema or effusion bilaterally. EYES: Pupils equal round and reactive to light and accommodation. Conjunctivae without injection, sclerae without icterus. Extraocular movements intact. NOSE: Patent, turbinates without inflammation or discharge. MOUTH: Mucous membranes moist. Pharynx without erythema or exudate. Uvula midline. Airway patent. Tongue does not deviate. NECK: Supple without nuchal rigidity. No lymphadenopathy. No thyromegaly. Cervical spine is nontender. No JVD. HEART: Regular rate and rhythm without murmurs gallops or rubs. LUNGS: Clear to auscultation bilaterally without wheezes, rales or rhonchi. No dullness to percussion. No retractions or accessory muscle use. ABDOMEN: Positive bowel sounds x 4. Normal tympanic percussion. Soft, protuberant, obese, tender to palpation right upper quadrant, no CVA tenderness , without masses or organomegaly. No guarding or rebound tenderness. MUSCULOSKELETAL: No muscle atrophy, erythema, noted. NEURO: Patient was alert and oriented to person place and time. Normal sensation to light and sharp touch. No focal neurological deficits. Medical Decision & Procedures Laboratory Results 10/16/16 22:05 Red Blood Count 5.37, Mean Corpuscular Volume 84.2, Mean Corpuscular Hemoglobin 31.8, Mean Corpuscular Hemoglobin Concent 37.8, Mean Platelet Volume 11.6 10/16/16 22:05 Test 10/16/16 22:05 White Blood Count 7.74 K/uL (4.8-10.8) Red Blood Count 5.37 M/uL (4.7-6.1) Hemoglobin 17.1 g/dL (14.0-18.0) Hematocrit 45.2 % (42-52) Mean Corpuscular Volume 84.2 fL (80-100) Mean Corpuscular Hemoglobin 31.8 pg (25-34) Mean Corpuscular Hemoglobin Concent 37.8 g/dl (32-36) Platelet Count 200 K/uL (130-400) Mean Platelet Volume 11.6 fL (7.4-10.4) RDW Standard Deviation 37.6 fL (36.4-46.3) RDW Coefficient of Variation 12.5 % (11.5-14.5) Neutrophils % (Manual) 71.0 % Lymphocytes % (Manual) 9.0 % Variant Lymphocytes % (manual) 11.0 % Monocytes % (Manual) 6.0 % Eosinophils % (Manual) 2.0 % Basophils % (Manual) 1.0 % (0-2) Neutrophils # (Manual) 5.50 K/uL (1.4-6.5) Total Absolute Neutrophils 5.50 K/uL (1.4-6.5) Lymphocytes # (Manual) 0.70 K/uL (1.2-3.4) Absolute Variant Lymphocytes 0.85 K/uL Total Absolute Lymphocytes 1.55 K/uL (1.2-3.4) Monocytes # (Manual) 0.46 K/uL (0.11-0.59) Eosinophils # (Manual) 0.15 K/uL (0-0.5) Basophils # (Manual) 0.08 K/uL (0-0.2) Activated Partial Thromboplast Time 26.1 SECONDS (21.0-31.0) Partial Thromboplastin Ratio 1.0 Anion Gap 11.0 mmol/L (3-11) Est Creatinine Clear Calc Drug Dose 149.8 ml/min Estimated GFR () 100.3 Estimated GFR (Non- 86.5 BUN/Creatinine Ratio 15.1 (10-20) Calcium Level 9.4 mg/dl (8.5-10.1) Magnesium Level 2.0 mg/dl (1.8-2.4) Total Bilirubin 0.5 mg/dl (0.2-1) Direct Bilirubin 0.1 mg/dl (0-0.2) Aspartate Amino Transf (AST/SGOT) 74 U/L (15-37) Alanine Aminotransferase (ALT/SGPT) 173 U/L (12-78) Alkaline Phosphatase 122 U/L (45-117) Troponin I < 0.015 ng/ml (0-0.045) Total Protein 7.7 gm/dl (6.4-8.2) Albumin 4.4 gm/dl (3.4-5.0) Lipase 125 U/L (73-393) Thyroid Stimulating Hormone (TSH) 2.240 uIu/ml (0.300-4.500) Chemistry Specimen Hemolysis Medications Administered Medications (Trade) Dose Ordered Sig/Ca Route Start Time Stop Time Status Last Admin Dose Admin Sodium Chloride 1,000 ml @ 999 mls/hr Q1H1M STAT IV 10/16/16 21:26 10/16/16 22:26 DC 10/16/16 22:34 999 MLS/HR Sodium Chloride (Nss 1000ml) 1,000 ml @ 125 mls/hr Q8H STAT IV 10/16/16 21:26 10/17/16 02:02 DC 10/16/16 22:34 125 MLS/HR Hydromorphone HCl (Dilaudid Inj) 0.5 mg ONE STAT IV 10/16/16 21:26 10/16/16 21:29 DC 10/16/16 22:30 0.5 MG Ondansetron HCl (Zofran Inj) 4 mg NOW STAT IV 10/16/16 21:26 10/16/16 21:29 DC 10/16/16 22:30 4 MG Morphine Sulfate (MoRPHine SULFATE INJ) 4 mg NOW STAT IV 10/17/16 00:00 10/17/16 00:01 DC 10/17/16 00:10 4 MG ED Course Prior records/ancillary studies reviewed. Triage Nursing notes reviewed. Additional history obtained from family. The patient's history was concerning for abdominal pain. Differential diagnosis: Etiologies such as appendicitis, diverticulitis, PUD, biliary pathology, UTI, pancreatitis, obstruction, mesenteric ischemia, aortic pathology, infections, inflammatory bowel disease, renal colic, as well as others were entertained. Physical examination findings: As above. ER treatment provided: Morphine, Zofran, IV fluids On reassessment the patient felt better. Diagnostics interpreted by me: ECG: Normal sinus, normal intervals, no acute ST-T wave changes. Impression normal sinus rhythm interpreted by myself The labs revealed hyperglycemia without DKA. Mildly elevated LFTs Imaging studies: As was read by stat radiology concerning for biliary sludge Consultation: A consultation was placed with the [facility], Dr. Damon. The case was discussed and diagnostics were reviewed. The patient was evaluated in the ER for further treatment. Exam and history seem consistent with biliary colic with intractable pain. Patient will be evaluated by medicine for possible admission. Patient is given a few rounds of the pain meds but still was uncomfortable.By the evaluation outlined above emergent etiologies such as appendicitis, diverticulitis, PUD, UTI, pancreatitis, obstruction, mesenteric ischemia, aortic pathology, infections, inflammatory bowel disease, renal colic, as well as others were deemed relatively unlikely. The pt informed about the findings as listed above. All questions were answered and pleased with the treatment. Case reviewed with my attending Medical Decision As above Impression Primary Impression: Biliary colic Additional Impressions: Intractable abdominal pain Hyperglycemia due to type 2 diabetes mellitus Departure Information Dispostion Still a Patient Condition FAIR Referrals Kannan Bautista M.D. (PCP) Forms Call Back Authorization, HOME CARE DOCUMENTATION FORM, IMPORTANT VISIT INFORMATION Patient Instructions My [facility] Problem Qualifiers
--- NOTE | 2016-10-17 04:30 | HISTORY & PHYSICAL EXAMINATION ---
DATE OF ADMISSION: 10/17/2016 PATIENT'S PRIMARY CARE DOCTOR: Dr. Bautista. Hx obtained from px and records. CHIEF COMPLAINT: Abdominal pain. HISTORY OF PRESENT ILLNESS: Medical history significant for COPD/asthma, ongoing tobacco abuse, DM2 insulin requiring, history of fatty liver disease, hx pancreatitis attributed to hypertriglyceridemia. Recent confinement in January 2016 for bronchitis and scrotal abscess. Two weeks ago, the patient seen in the Emergency Room for nausea, vomiting, loose stools, right upper quadrant pain. Gallbladder ultrasound showed sludge, no cholecystitis. Impression was biliary colic. Patient discharged home. Constant RUQ pain, waxing and waning over the last 2 weeks, worse with meals w/nausea/vomiting sx. No fever, no chills. Minimal response to home analgesics PCP worried about possible acalculous cholecystitis. Outpatient HIDA scan scheduled but patient unable to comply due to inclement weather. Outpatient surgery referral contemplated. MEDICAL HISTORY: As above. SURGERIES: None HOME MEDICATIONS: Include sucralfate, fish oil, NovoLog, Lantus, Percocet, polyethylene glycol, Lipitor, docusate sodium, EpiPen, and Advair Diskus. Ultram ALLERGIES: BEE STINGS AND METFORMIN. FAMILY HISTORY: Heart disease. PERSONAL AND SOCIAL HISTORY: One pack daily. No chronic intake of alcoholic beverages. Animal truck body repairer. REVIEW OF SYSTEMS: As per HPI, all other ROS negative. PHYSICAL EXAMINATION: VITAL SIGNS: Blood pressure was noted to be 136/84, pulse rate 90, RR 18, temperature 36.8, sats 95% on room air. GENERAL: Noted to be obese, anxious, uncomfortable, no respiratory distress, looks older for stated age. SKIN: Normal color. HEENT: [place] palpebral conjunctivae. Dry mucosa. NECK: Short neck. LUNGS: Decreased breath sounds. Occasional wheeze. HEART: RRR ABDOMEN: Right upper quadrant tenderness. EXTREMITIES: No edema. no tenderness, healed scar on the lower leg. NEUROLOGIC: No gross focality. DIAGNOSTIC DATA: Chest x-ray, no acute cardiopulmonary findings. Gallbladder ultrasound hepatomegaly, gallbladder sludge, no gallstones, borderline GB wall thickness, prominent CBD 7mm. No free fluid. Hemoglobin 17.2, white cell count 7.7, platelets 200. Sodium 140 potassium 4.4, chloride 102, BUN 17, creatinine 1 AST 74, ALT 170, alkaline phosphatase 122 ASSESSMENT: 1. Right upper quadrant pain for 2 weeks, abn LFTs. 2 to biliary colic ro CBD stone 2. History of fatty liver disease as per records 3. DM2, insulin requiring, suboptimal control as of recent outpx HgA1c of 9.5 (^ 4. asthma/COPD as per records, pulmo status at baseline as per px occ. exp wheezes noted on exam 5. Ongoing tobacco abuse. PLAN: GMF analgesia. Follow LFTs, MRCP. Surgery consult. RE persistent biliary colic Basal insulin adjusted for n.p.o. sips status, ISS BG goal 140-180 px due for HgA1c recheck Nicotine patch. DVT prophylaxis, Lovenox subQ. Full code. MTDD
[2016-10-17] MEDS: INSULIN ASPART 100 UNITS/ML 3 ML PEN SC SCH ×3 (05:55→18:09)
[2016-10-17 06:29] LABS: ESTIMATED AVERAGE GLUCOSE 223 mg/dl; HA1C FLAG Normal (Normal)
--- NOTE | 2016-10-17 07:06 | DIAGNOSTIC IMAGING REPORT ---
ULTRASOUND RIGHT UPPER QUADRANT ABDOMEN CLINICAL HISTORY: Right upper quadrant abdominal pain. COMPARISON STUDY: Abdominal CT dated 12/22/2015. Abdominal ultrasound dated 10/07/2016. TECHNIQUE: Real-time, grayscale, and color flow sonography of the right upper quadrant of the abdomen was performed. Images are reviewed in the transverse and longitudinal planes. The examination is degraded by large body habitus. FINDINGS: Liver: The liver is enlarged and demonstrates heterogeneous increased echotexture consistent with severe hepatic steatosis. Note that this degrades acoustic penetration of the liver. Fatty sparing is noted adjacent to gallbladder fossa. There is no intrahepatic biliary ductal dilatation. The main portal vein is patent. Gallbladder: The gallbladder is normal in appearance. No gallstones are identified. There is no gallbladder wall thickening or pericholecystic fluid. A sonographic Felton's sign is reportedly absent. The common bile duct measures up to 0.5 cm in diameter. Pancreas: Not well visualized due to overlying bowel gas. Right kidney: Survey images of the right kidney demonstrate normal size and echotexture. There is no hydronephrosis. Ascites: None. IMPRESSION: 1. No acute sonographic abnormality is identified. No gallstones are seen. There has been no significant change from study performed 9 days previously. 2. Hepatomegaly and severe hepatic steatosis. 3. The pancreas was not well visualized due to overlying bowel gas. Electronically signed by: Ron Vee M.D. 10/17/2016 7:04 AM Dictated Date/Time: 10/17/2016 7:03 AM
[2016-10-17] MEDS: FLUTICASONE/SALMETEROL 250/50 (ADVAIR) 14 PUFF/1 INHALER INH SCH ×2 (07:42→21:05)
[2016-10-17] MEDS: NICOTINE 21 MG/24 HR TDSY TD SCH (07:43)
[2016-10-17] MEDS ORDERED: INSULIN ASPART 100 UNITS/ML 3 ML PEN SC SCH (08:00)
[2016-10-17] MEDS: SUCRALFATE 1 GM TAB PO SCH ×2 (08:31→21:04)
[2016-10-17] MEDS: PANTOprazole SOD 40 MG TAB PO SCH (08:31)
[2016-10-17] MEDS ORDERED: ENOXAPARIN 40 MG/0.4 ML SYR SQ SCH (09:00)
[2016-10-17 09:20] LABS: BASO % 0.6 %; BASO ABS # 0.04 K/uL (0-0.2); COMPLETE YES; EOS % 2.2 %; HEMATOCRIT 42.8 % (42-52); IG% 0.3 %; LYMPH % 47.4 %; LYMPH ABS # 3.41 K/uL (1.2-3.4); MEAN CELL VOLUME 83.9 fL (80-100); MEAN CORPUSCULAR HEMOGLOBIN 31.2 pg (25-34); MEAN CORPUSCULAR HGB CONC 37.1 g/dl (32-36); MEAN PLATELET VOLUME 11.1 fL (7.4-10.4); NEUT % 43.5 %; PLATELET COUNT 183 K/uL (130-400); WHITE BLOOD COUNT 7.19 K/uL (4.8-10.8)
[2016-10-17 09:53] LABS: ALB/GLOB RATIO 1.2 (0.9-2); BUN/CREATININE RATIO 14.7 (10-20); CALCIUM 8.8 mg/dl (8.5-10.1); CREATININE 0.95 mg/dl (0.60-1.40); POTASSIUM 3.9 mmol/L (3.5-5.1)
--- NOTE | 2016-10-17 12:02 | DIAGNOSTIC IMAGING REPORT ---
MRCP HISTORY: Generalized abdominal pain with nausea and vomiting. TECHNIQUE: MRCP the abdomen was performed according to standard department protocol without the use of contrast. COMPARISON STUDY: Abdominal ultrasound 10/16/2016. Abdomen and pelvis CT 12/22/2015. FINDINGS: The common bile duct is normal in course and caliber. There are no filling defects within the common bile duct. The intrahepatic bile ducts are not well visualized but are not dilated. The main pancreatic duct is not well-visualized due to small diameter but is not distended. Normal gallbladder. No gallstones. The lung bases are clear. The liver, spleen, adrenal glands, kidneys, and pancreas are unremarkable. IMPRESSION: 1. Normal caliber common bile duct. No filling defects within the common bile duct. 2. The pancreatic duct is not well-visualized due to its small size but is not distended. 3. Normal gallbladder. No gallstones. Electronically signed by: Stephen Billings M.D. 10/17/2016 12:01 PM Dictated Date/Time: 10/17/2016 11:55 AM
[2016-10-17] MEDS ORDERED: FENTANYL CITRATE INJ 50 MCG/1 ML 2 ML VIAL ONE (13:18)
[2016-10-17] MEDS ORDERED: MIDAZOLAM HCL 1 MG/ML 2ML VIAL ONE (13:18)
--- NOTE | 2016-10-17 13:18 | History & Physical Bridge Note ---
H&P Re-Evaluation Bridge Note: I have examined the patient, reviewed the History & Physical and in the interval since the performance of the History & Physical I have noted the following changes of clinical significance: No changes noted consultation note dictated julianne 45 minutes ago from [phone] area and discussed case with fernando Yusuf'gram will proceed today. r and c explained to pt my dictated consultation not back to sign yet
[2016-10-17] MEDS ORDERED: NEOSTIGMINE METHYLSULFATE 5 MG/5 ML SYR ONE (13:20)
[2016-10-17] MEDS ORDERED: GLYCOPYRROLATE INJ 0.2 MG/ML VIAL ONE (13:20)
[2016-10-17] MEDS ORDERED: LIDOCAINE HCL 2% 2 ML VIAL (20MG/ML) ONE (13:20)
[2016-10-17] MEDS ORDERED: ONDANSETRON INJ 2 MG/ML 2 ML VIAL ONE (13:20)
[2016-10-17] MEDS ORDERED: PROPOFOL IV EMULSION 10 MG/ML 20 ML VIAL IV ONE ×2 (13:20→14:24)
[2016-10-17] MEDS ORDERED: ROCURONIUM BROMID 50MG/5ML SYR ONE ×2 (13:20→14:24)
[2016-10-17] MEDS ORDERED: LIDOCAINE/EPINEPHRINE 1% 20 ML VIAL ONE (13:36)
--- NOTE | 2016-10-17 14:25 | SURGICAL CONSULTATION ---
DATE OF ADMISSION: 10/17/2016 REASON FOR CONSULTATION: Abdominal pain. SUMMARY: This is a 36-year-old gentleman, BMI of 40, history of diabetes last 5 years, insulin dependent was admitted here approximately a year ago in August 2015 with pancreatitis. At the time question whether or not it may have been related to some alcohol use. He has not drank anything since that time. Approximately a week or so ago, was seen in the Emergency Room after eating a fatty steak with abdominal pain, was worked up at that time where laboratory studies were normal, white count was normal. Liver function tests show slight elevation in alkaline phosphatase at 144, but the lipase was normal. Was discharged with the intent to follow up with a surgeon since an ultrasound showed that may have some sludge in the gallbladder. He called for an appointment with [facility] surgically and then scheduled for some point about the third week of October. However, the pain since last week is really not subsided and more accentuated on Thursday after the patient had had some eggs with significant amount of butter that progressively got worse in the last 2 days and was seen here in the Emergency Room this morning when a repeat ultrasound did not show any wall thickness, did not show any stones in the gallbladder or sludge. An MRCP that was done earlier this morning was virtually negative. His laboratory studies on admission last night show only alkaline phosphatase at 122, but the bilirubin was normal, slight elevation of AST and ALT. These were repeated later, the alkaline phosphatase was negative, but the AST and ALT was elevated. There was no lipase elevation. PAST MEDICAL HISTORY: Significant for virtually every one in his family has had gallbladders out, infected mother and dad and most recently his sister. He does have a longstanding history of fatty food intolerances to a point that he feels bloated. The most recent attack also gave him some diarrhea, especially eating some fatty foods. He has been scoped twice by Dr. Hinton in the past for what appears to be gastric paresis. That seems to be not an issue at this time and he feels that his pain is in the right upper quadrant radiating to the back. Denies any low back pain or any mid back scapular pain. His past medical history other than some foot surgery has been unremarkable as far as any surgeries. MEDICATIONS: List at home includes some Protonix, Carafate, fish oil, Advair Diskus, Lipitor, fentanyl and recently prescribed oxycodone. He also had tramadol off and on. ALLERGIES: HE HAS AN ALLERGY TO BEE STING AND METFORMIN. PHYSICAL EXAMINATION: GENERAL: As I see Mr. Bernal today he is sitting at the side of the bed. He points to pinpoint tenderness in the right upper quadrant. HEAD: Normocephalic. EYES: PERRLA. The sclerae are nonicteric. NECK: There is no cervical lymphadenopathy. HEART: Normal. LUNGS: Clear at this time. ABDOMEN: Softly distended due to his BMI, but he has exquisite tenderness underneath the rib margin in the right upper quadrant. No full masses appreciated. This is almost pinpoint tenderness. The rest of the abdominal exam is negative. IMPRESSION: At this point, surgery was discussed with the patient. Given the fact that he has a very strong family history and also the presence of symptomatology that are present at this time and within the last week. Certainly, we can proceed and get a HIDA scan that would not really change our clinical picture, still given the facts that I presented earlier I would still recommend to proceed with surgery. Risk and complications of surgery were explained to the patient including bleeding, infection, converting to an open procedure and also the possibility that it may not alleviate all his pain and he is agreeable to that and he would like to proceed accordingly. Of note, since the pain started a week ago and it really accentuated more on Thursday, since Thursday, the pain is becoming progressively worse.
[2016-10-17] MEDS ORDERED: ATROPINE SULFATE 0.1 MG/ML 5ML SYR IV PRN (14:30)
[2016-10-17] MEDS ORDERED: PHENYLEPHRINE 100MCG/ML 5ML SYR IV PRN (14:30)
[2016-10-17] MEDS ORDERED: EpHEDrine SULFATE INJ 50 MG/ML AMP IV PRN (14:30)
[2016-10-17] MEDS ORDERED: HYDROmorphone INJ 2 MG/ML SYR/VIAL IV PRN (14:30)
[2016-10-17] MEDS ORDERED: CONRAY 60% 50 ML VIAL INSTIL ONE (14:45)
--- NOTE | 2016-10-17 15:04 | [facility] Post Operative Brief Note ---
Immediate Operative Summary Operative Date Oct 17, 2016. Pre-Operative Diagnosis Persistent Biliary Colic Post-Operative Diagnosis Persistent Biliary Colic Procedure(s) Performed Laparoscopic Cholecystectomy with Cholangiogram Surgeon Dr. Ramos Language Pathologist Surgeon(s) Lizzeth Tony PA-C Estimated Blood Loss 5cc Findings cc with bilirubinate polyp Specimens A: Gallbladder
--- NOTE | 2016-10-17 15:04 | DIAGNOSTIC IMAGING REPORT ---
INTRAOPERATIVE CHOLANGIOGRAM CLINICAL HISTORY: Cholangiogram. COMPARISON STUDY: MRCP performed earlier today. FLUOROSCOPY TIME: 2 seconds. FINDINGS: 3 fluoroscopic images of the right upper quadrant were obtained during an intraoperative cholangiogram. No filling defect is identified within the common bile duct. There is contrast within the duodenum. There is no biliary ductal dilatation. There may be a small amount of contrast extravasation at the injection site. Mild narrowing of the distal common bile duct is likely within normal limits. There is no upstream dilatation. IMPRESSION: No evidence of choledocholithiasis. Electronically signed by: Ran Gonzalez M.D. 10/17/2016 3:03 PM Dictated Date/Time: 10/17/2016 3:02 PM
[2016-10-17] MEDS ORDERED: MIX:1% LIDO W/EPI 20ML & 0.5% BUP INJ ONE (15:09)
[2016-10-17] MEDS: ONDANSETRON INJ 2 MG/ML 2 ML VIAL IV PRN ×2 (15:30→15:50)
--- NOTE | 2016-10-17 15:33 | OPERATIVE REPORT ---
DATE OF OPERATION: 10/17/2016 PREOPERATIVE DIAGNOSIS: Chronic cholecystitis. POSTOPERATIVE DIAGNOSIS: Same. PROCEDURE: Laparoscopic cholecystectomy, intraoperative cholangiogram. SURGEON: Dr. Ramos. INTERVENTIONAL NURSE: Lizzeth Tony PA-C. SUMMARY: The patient was brought into the operating room theater. The abdomen was prepped with Betadine solution and properly draped. Systemic antibiotics had been given. We made a small incision supraumbilically sufficient enough to place a Veress needle followed by a 5 mm trocar after CO2 was developed and pneumoperitoneum established. Point of entry inspected and no injury identified. At this point, the patient was turned to the left side and in reverse Trendelenburg, we could see a very raw edged liver confirming fatty infiltration he had had. At this point, under direct visualization, the epigastric area which preemptive local analgesia 1% Xylocaine without epinephrine. We infiltrated, I placed a 5 mm trocar and two 5 mm subcostal ports and trocars. At this point we elevated the gallbladder which was made with some difficulty because of the size of the liver. The gallbladder wall itself did not appear to be grossly normal, the wall may have been thicker than normal. At this point we dissected down towards the neck of the gallbladder. We were able to identify the lymph node of [place]. We used that as our marking point and able to identify the takeoff of the cystic duct. Some fatty infiltration there was just dissected out not using the cautery. At this point, I clipped the cystic duct at its takeoff. A small opening in the cystic duct was made. A #4 ureteral catheter transversed the abdominal wall was positioned in the cystic duct. Serial x-rays were taken which showed a very long corkscrew cystic duct and a very small common bile duct and free flow into the duodenum, no evidence of any obstruction. At this point we removed the cholangiocath and doubly clipped the cystic duct securely as we choked up on it since it was quite long. The anterior and posterior branches of cystic artery doubly clipped. We then took the gallbladder leaving the posterior peritoneum intact. We placed it in an Endopouch after freeing it up from the liver and took it out through the epigastric port. At the end of the case I opened it and it seemed to be some wall edema and also what appears to be bilirubinate polyp in the fundus. The subhepatic and suprahepatic area checked for hemostasis and appeared satisfactory. I placed a camera in subcostal port to visualize the umbilical opening. There were no adhesions appreciated or no bleeding. I debated whether or not do a Kartik-Cut biopsy of the liver, but it was technically difficult to even try to get the Kartik-Cut and engage the liver dye to the size of the patient. I elected at this point to not proceed with that. Individual trocars removed. Wounds were closed with 4-0 Monocryl. Steri-Strips applied. The procedure was tolerated well by the patient and was taken to recovery room in good condition. I attest to the content of the Intraoperative Record and any orders documented therein. Any exceptio ns are noted below.
[2016-10-17] MEDS ORDERED: ALBUT/IPRATROP 3MG/0.5MG NEB 3 ML VIAL INH ONE (16:30)
--- NOTE | 2016-10-17 17:03 | Anesthesiology Progress Note ---
Anesthesia Post Op Note Date & Time Oct 17, 2016 at 16:59 Vital Signs Pain Intensity: 4 Vital Signs Past 12 Hours Date Time Temp Pulse Resp B/P Pulse Ox O2 Delivery O2 Flow Rate FiO2 10/17/16 16:30 90 16 90 Nasal Cannula 4.0 10/17/16 16:25 92 13 137/95 96 Nasal Cannula 4 10/17/16 16:15 83 13 126/78 92 Nasal Cannula 4 10/17/16 16:00 36.2 83 12 142/94 93 Nasal Cannula 4 10/17/16 15:50 88 12 138/88 95 Nasal Cannula 4 10/17/16 15:40 86 16 153/87 98 Mask 10 10/17/16 15:30 89 16 159/103 93 Mask 10 10/17/16 15:23 36.4 93 16 155/107 94 Mask 10 10/17/16 13:35 79 18 96 Room Air 10/17/16 08:37 36.9 78 20 137/88 94 Room Air 10/17/16 07:30 Room Air 10/17/16 06:55 36.9 78 20 137/88 94 Room Air Notes Mental Status: alert / awake / arousable, participated in evaluation Pt Amnestic to Procedure: Yes Nausea / Vomiting: adequately controlled Pain: adequately controlled Airway Patency, RR, SpO2: stable & adequate BP & HR: stable & adequate Hydration State: stable & adequate Anesthetic Complications: no major complications apparent The patient is a 36 y/o male with a h/o ARIANA on CPAP, obesity, + tob s/p cholecystectomy. The patient was given a Duoneb in PACU for some wheezing on expiration. His breath sounds were otherwise clear and he denied any shortness of breath. He has his CPAP with him that will be started when he arrives on the floor and he will be on continuous pulse oximetry. His pulse ox was 94-95% on 4L NC prior to transfer to the floor.
[2016-10-17] MEDS ORDERED: NURSING DECISION MEDICATION ORDER SCH (18:00)
[2016-10-17] MEDS: OXYCODONE/ACETAMINOPHEN 5-325 TAB PO PRN (19:58)
[2016-10-17] MEDS ORDERED: INSULIN ASPART 100 UNITS/ML 3 ML PEN SC ONE (21:00)
[2016-10-17] MEDS: INSULIN GLARGINE SOLOSTAR 100 UNITS/ML 3 ML PEN SQ SCH (21:04)
[2016-10-18] MEDS: OXYCODONE/ACETAMINOPHEN 5-325 TAB PO PRN ×2 (03:02→10:28)
[2016-10-18 04:00] VITALS: BP 129/75; PULSE 101; TEMP 36.6; O2SAT 99
[2016-10-18] MEDS: HEPARIN SOD 5000 UNIT/0.5 ML CARP SQ SCH ×2 (06:24→13:13)
[2016-10-18 07:05] LABS: ALB/GLOB RATIO 1.1 (0.9-2); BUN/CREATININE RATIO 15.4 (10-20); CREATININE 1.1 mg/dl (0.60-1.40); POTASSIUM 4.4 mmol/L (3.5-5.1)
[2016-10-18 07:20] VITALS: BP 96/65; PULSE 105; TEMP 36.7; O2SAT 93
[2016-10-18] MEDS: HYDROmorphone INJ 1 MG/ML SYR IV PRN (08:00)
--- NOTE | 2016-10-18 08:39 | SURGERY PROGRESS NOTE ---
DATE: 10/18/2016 DATE: 10/18/2016. Geoffrey is 1st postoperative day status post laparoscopic cholecystectomy, cholangiogram. He feels 100% better, all his preoperative pain is gone. He is anxious to go home. Intraoperative findings were discussed with the patient. His last vitals showed a temperature of 36.7, pulse 105 to 95, respirations 22, blood pressure 96/65. I doubt its accuracy. I\T\O, he had 3800 mL of urine. He has moved his bowels. Laboratory howe this morning liver function tests are normal except for slight elevation of the ALT. The abdomen is completely benign. At this point we will discharge the patient if okay with the medical service. I instructed him to see him in the office in 1 week. Instructed regarding wound care, diet, activity and meds which basically do not lift anything heavier than 10 pounds, do not drive for at least 3 days and do not take any pain pills when driving. He may shower. The phone number was left instructions for him to call to see an appointment in 1 week. He should be off work for a couple weeks.
[2016-10-18] MEDS: SUCRALFATE 1 GM TAB PO SCH (08:47)
[2016-10-18] MEDS: PANTOprazole SOD 40 MG TAB PO SCH (08:47)
[2016-10-18] MEDS: FLUTICASONE/SALMETEROL 250/50 (ADVAIR) 14 PUFF/1 INHALER INH SCH (08:48)
[2016-10-18] MEDS: INSULIN ASPART 100 UNITS/ML 3 ML PEN SC SCH ×2 (08:51→13:11)
[2016-10-18] MEDS: INSULIN GLARGINE SOLOSTAR 100 UNITS/ML 3 ML PEN SQ SCH (08:53)
[2016-10-18] MEDS: NICOTINE 21 MG/24 HR TDSY TD SCH (08:55)
[2016-10-18 11:28] VITALS: BP 134/81; PULSE 98; TEMP 36.7; O2SAT 95
--- NOTE | 2016-10-18 14:23 | Progress Note ---
Subjective Date of Service: Oct 18, 2016. Subjective Pt evaluation today including: conversation w/ patient, physical exam, lab review, review of studies, review of inpatient medication list Saw/examined the patient in room 384 Doing well post-operatively, pain controlled +BM No fevers/chills Problem List Medical Problems: (1) Acute pancreatitis Status: Acute (2) Biliary colic Status: Acute (3) Biliary colic Status: Acute (4) Cellulitis of scrotum Status: Acute (5) COPD exacerbation Status: Acute (6) Hyperglycemia due to type 2 diabetes mellitus Status: Acute (7) Intractable abdominal pain Status: Acute (8) Nausea vomiting and diarrhea Status: Acute (9) Viral syndrome Status: Acute (10) Wheezing Status: Acute Review of Systems Constitutional: No chills, No fever Respiratory: No cough, No shortness of breath, No sputum Cardiac: No chest pain, No edema, No palpitations Abdomen: + pain, No GI bleeding, No constipation, No diarrhea, No nausea, No vomiting Medications Current Inpatient Medications Medications (Trade) Dose Ordered Sig/Ca Route Start Time Stop Time Status Last Admin Dose Admin Miscellaneous (Iv Fluids Completed) 1 ea PRN PRN N/A 10/17/16 01:15 10/17/17 01:14 Acetaminophen (Tylenol Tab) 325 mg Q6H PRN PO 10/17/16 01:30 11/16/16 01:29 Glucose (Glucose 40% Gel) 15-30 GRAMS 15 GRAMS... UD PRN PO 10/17/16 01:30 11/16/16 01:29 Glucose (Glucose Chew Tab) 4-8 Tablets 4 Tabl... UD PRN PO 10/17/16 01:30 11/16/16 01:29 Dextrose (Dextrose 50% 50ML Syringe) 25-50ML OF 50% DW IV FOR... UD PRN IV 10/17/16 01:30 11/16/16 01:29 Glucagon (Glucagon Inj) 1 mg UD PRN SQ 10/17/16 01:30 11/16/16 01:29 Ketorolac Tromethamine (Toradol Inj) 30 mg Q6H PRN IV 10/17/16 01:30 10/22/16 01:29 10/17/16 07:38 30 MG Ondansetron HCl 4 mg 4 mg Q6H PRN IV 10/17/16 01:30 11/16/16 01:29 Promethazine HCl/ Sodium Chloride (Phenergan Inj/ Nss 50ml) 50.5 ml @ 204 mls/hr Q6H PRN IV 10/17/16 01:30 11/16/16 01:29 Lorazepam (Ativan Inj) 0.5 mg Q4H PRN IV 10/17/16 01:30 11/16/16 01:29 Nicotine (Nicoderm Cq 21MG Patch) 1 patch QAM TD 10/17/16 09:00 11/16/16 08:59 10/17/16 07:43 1 PATCH Miscellaneous (Remove Nicoderm Patch) 1 ea HS N/A 10/17/16 21:00 11/16/16 20:59 Salmeterol Xinafoate/ Fluticasone (Advair Diskus 250/50 Inh) 1 puff BID INH 10/17/16 09:00 11/16/16 08:59 10/18/16 08:48 1 PUFF Insulin Glargine (Lantus Solostar Pen) 20 unit BID SQ 10/17/16 21:00 11/16/16 20:59 10/18/16 08:53 20 UNIT Oxycodone/ Acetaminophen (Percocet 5-325mg Tab) 1 tab Q6H PRN PO 10/17/16 01:30 10/31/16 01:29 10/18/16 10:28 1 TAB Pantoprazole Sodium (Protonix Tab) 40 mg DAILY PO 10/17/16 09:00 11/16/16 08:59 10/18/16 08:47 40 MG Sucralfate (Carafate Tab) 1 gm BID PO 10/17/16 09:00 11/16/16 08:59 10/18/16 08:47 1 GM Tramadol HCl (Ultram Tab) 100 mg Q6H PRN PO 10/17/16 01:30 11/16/16 01:29 Polyethylene (Miralax Powder Packet) 17 gm TID PRN PO 10/17/16 01:30 11/16/16 01:29 Ipratropium [place] (Atrovent 0.02% 0.5MG/2.5ML Neb) 0.5 mg Q4H PRN INH 10/17/16 01:45 11/16/16 01:44 Levalbuterol (Xopenex 1.25MG/ 0.5ML Neb) 1.25 mg Q4H PRN INH 10/17/16 01:45 11/16/16 01:44 Insulin Aspart (novoLOG ASPART) SLIDING SCALE If C... ACHS SC 10/17/16 21:00 11/16/16 05:59 10/18/16 13:11 8 UNITS Heparin Sodium (Porcine) (Heparin Sq 5000 Unit/0.5ml) 5,000 unit Q8 SQ 10/18/16 06:00 11/17/16 05:59 10/18/16 13:13 5,000 UNIT Objective Vital Signs Date Time Temp Pulse Resp B/P Pulse Ox O2 Delivery O2 Flow Rate FiO2 10/18/16 11:28 36.7 98 20 134/81 95 Room Air 10/18/16 07:20 36.7 105 22 96/65 93 CPAP 10/18/16 04:00 36.6 101 18 129/75 99 CPAP 10/17/16 23:15 High Flow Oxygen 4.0 CPAP 10/17/16 23:10 36.8 95 20 149/79 93 Room Air 10/17/16 19:48 35.9 95 20 137/70 96 CPAP 4.0 10/17/16 18:59 36.5 102 20 126/72 96 CPAP 4.0 10/17/16 17:52 36.8 100 18 121/76 95 Nasal Cannula 4.0 10/17/16 17:08 36.6 98 18 131/83 94 Nasal Cannula 4.0 10/17/16 16:45 36.6 99 18 125/83 91 Nasal Cannula 4.0 10/17/16 16:45 Nasal Cannula 4.0 10/17/16 16:45 91 Nasal Cannula 4.0 10/17/16 16:30 90 16 90 Nasal Cannula 4.0 10/17/16 16:25 92 13 137/95 96 Nasal Cannula 4 10/17/16 16:15 83 13 126/78 92 Nasal Cannula 4 10/17/16 16:00 36.2 83 12 142/94 93 Nasal Cannula 4 10/17/16 15:50 88 12 138/88 95 Nasal Cannula 4 10/17/16 15:40 86 16 153/87 98 Mask 10 10/17/16 15:30 89 16 159/103 93 Mask 10 10/17/16 15:23 36.4 93 16 155/107 94 Mask 10 Physical Exam General Appearance: no apparent distress Respiratory/Chest: lungs clear, normal breath sounds, no respiratory distress, no accessory muscle use Cardiovascular: regular rate, rhythm, no edema, no murmur Abdomen: normal bowel sounds, soft, + tenderness (mildly tender) Neurologic/Psychiatric: no motor/sensory deficits, alert, normal mood/affect Laboratory Results Last 24 Hours Test 10/17/16 15:33 10/17/16 16:45 10/17/16 20:32 10/18/16 05:47 Bedside Glucose 186 mg/dl 224 mg/dl 261 mg/dl Sodium Level 136 mmol/L Potassium Level 4.4 mmol/L Chloride Level 101 mmol/L Carbon Dioxide Level 26 mmol/L Anion Gap 9.0 mmol/L Blood Urea Nitrogen 17 mg/dl Creatinine 1.10 mg/dl Est Creatinine Clear Calc Drug Dose 149.8 ml/min Estimated GFR () 100.3 Estimated GFR (Non- 86.5 BUN/Creatinine Ratio 15.4 Random Glucose 244 mg/dl Calcium Level 9.0 mg/dl Total Bilirubin 0.6 mg/dl Aspartate Amino Transf (AST/SGOT) 56 U/L Alanine Aminotransferase (ALT/SGPT) 147 U/L Alkaline Phosphatase 104 U/L Total Protein 7.4 gm/dl Albumin 3.9 gm/dl Globulin 3.5 gm/dl Albumin/Globulin Ratio 1.1 Test 10/18/16 08:02 10/18/16 11:43 Bedside Glucose 248 mg/dl 277 mg/dl Assessment and Plan This is a 36 year old male with PMH of insulin dependent DM2, COPD, tobacco use disorder presents with abdominal pain and likely clinical cholecystitis Clinical Cholecystitis s/p cholecystectomy; POD #1 patient feels much better, abdominal pain resolved he is tolerating food appreciate surgery input can be d/c today will d/c with PCP f/u Insulin Dependent DM2 patient should continue home regimen Ha1c = 9.4%; uncontrolled, will need adjustment in medications as outpatient COPD continue Advair continue rescue inhaler as needed Tobacco Use Disorder will prescribe nicotine patch DVT ppx subq heparin FULL CODE
[2016-10-18] MEDS ORDERED: OXYC-57 PO (14:27)
[2016-10-18] MEDS ORDERED: NCDT21 TD (14:27)
--- NOTE | 2016-10-18 14:32 | Discharge Instructions ---
Discharge Instructions Date of Service Oct 18, 2016. Admission Reason for Admission: Abdominal Pain Discharge Discharge Diagnosis / Problem: Abdominal Pain; s/p Cholecystectomy Discharge Goals Goal(s): Decrease discomfort, Improve function, Diagnostic testing, Therapeutic intervention Activity Recommendations Activity Limitations: resume your previous activity . Instructions / Follow-Up Instructions / Follow-Up Please follow-up with Dr. Velasco (covering for Dr. Bautista) on October 21 @ 10:50AM * You will be prescribed Percocet - only take this as needed - do not drive if you take this medication * Do not lift anything greater than 10lbs. * No driving x 3 days * You may shower * Follow-up with Dr. Ramos, general surgery in 1 week Current Hospital Diet Patient's current hospital diet: Diabetes Type 2 Diet Discharge Diet Recommended Diet: Diabetes Type 2 Diet Procedures Procedures Performed: Laparoscopic Cholecystectomy with Cholangiogram Pending Studies Studies pending at discharge: no Laboratory Results Hemoglobin A1c Test 10/16/16 22:05 Range/Units Estimated Average Glucose 223 mg/dl Hemoglobin A1c 9.4 H 4.5-5.6 % Medical Emergencies . Who to Call and When: Medical Emergencies: If at any time you feel your situation is an emergency, please call 911 immediately. . Non-Emergent Contact Non-Emergency issues call your: Primary Care Provider, Surgeon . . "Provider Documentation" section prepared by Juanita Santoro. VTE Core Measure Inpt VTE Proph given/why not?: Unfractionated heparin SQ [place] Drug Monitoring Program Search Results: patient reviewed within database, no issues identified
--- NOTE | 2016-10-18 14:35 | Discharge Summary ---
Discharge Summary Date of Service Oct 18, 2016. Discharge Summary Admission Date: Oct 17, 2016 at 01:05 Discharge Date: Oct 18, 2016 Discharge Disposition: Home Principal Diagnosis: Abdominal Pain, Clinical Cholecystitis s/p Cholecystectomy Medication Reconciliation New Medications: Nicotine (Nicotine) 1 Patch Tdsy 21 MG TD QAM for 30 Days, #1 BOX Continued Medications: Albuterol Hfa (Ventolin Hfa) 200 Puffs/44810 Mcg Aers 2 PUFFS INH Q6H Atorvastatin (Lipitor) 80 Mg Tab 80 MG PO HS, TAB Docusate Sodium (Docusate Sodium) 100 Mg Cap 100 MG PO DAILY Empagliflozin (Jardiance) 25 Mg Tab 25 MG PO DAILY Epinephrine (Epipen) 0.3 Mg/0.3 Ml Inj 0.3 MG IM UD Fish Oil ([place]bert-3) 1 Ea Cap 1 CAP PO DAILY, CAP Fluticasone Prop/Salmeterol (Advair Diskus 250/50 60 Dose) 1 Ea Aerp 1 PUFF INH BID, INHALER Insulin Aspart (Novolog Flexpen) 100 Units/Ml Inj UNITS SQ UD per sliding scale Insulin Glargine (Lantus Solostar) 100 Unit/Ml Inj 60 UNITS SQ BID, PEN Oxycodone/Acetaminophen 5MG/325MG (Percocet 5MG/325MG) Tab 1 TABLET PO Q6H PRN for Pain for 3 Days, #10 TABS 0 Refills (This prescription has been renewed) Pantoprazole (Protonix) 40 Mg Tab 40 MG PO DAILY, #30 TAB Polyethylene Glycol 3350 (Bulk (Polyethylene Glycol 3350) 1 Pow Pow 17 GM PO TID PRN for Constipation Sucralfate (Carafate) 1 Gm Tab 1 GM PO BID, TAB Discontinued Medications: Tramadol (Ultram) 50 Mg Tab 100 MG PO Q8 PRN for Pain, TAB Admission Information Physical Exam (per Admitting): DATE OF ADMISSION: 10/17/2016 PATIENT'S PRIMARY CARE DOCTOR: Dr. Bautista. Hx obtained from px and records. CHIEF COMPLAINT: Abdominal pain. HISTORY OF PRESENT ILLNESS: Medical history significant for COPD/asthma, ongoing tobacco abuse, DM2 insulin requiring, history of fatty liver disease, hx pancreatitis attributed to hypertriglyceridemia. Recent confinement in January 2016 for bronchitis and scrotal abscess. Two weeks ago, the patient seen in the Emergency Room for nausea, vomiting, loose stools, right upper quadrant pain. Gallbladder ultrasound showed sludge, no cholecystitis. Impression was biliary colic. Patient discharged home. Constant RUQ pain, waxing and waning over the last 2 weeks, worse with meals w/nausea/vomiting sx. No fever, no chills. Minimal response to home analgesics PCP worried about possible acalculous cholecystitis. Outpatient HIDA scan scheduled but patient unable to comply due to inclement weather. Outpatient surgery referral contemplated. MEDICAL HISTORY: As above. SURGERIES: None HOME MEDICATIONS: Include sucralfate, fish oil, NovoLog, Lantus, Percocet, polyethylene glycol, Lipitor, docusate sodium, EpiPen, and Advair Diskus. Ultram ALLERGIES: BEE STINGS AND METFORMIN. FAMILY HISTORY: Heart disease. PERSONAL AND SOCIAL HISTORY: One pack daily. No chronic intake of alcoholic beverages. Animal cement truck driver. REVIEW OF SYSTEMS: As per HPI, all other ROS negative. PHYSICAL EXAMINATION: VITAL SIGNS: Blood pressure was noted to be 136/84, pulse rate 90, RR 18, temperature 36.8, sats 95% on room air. GENERAL: Noted to be obese, anxious, uncomfortable, no respiratory distress, looks older for stated age. SKIN: Normal color. HEENT: [place] palpebral conjunctivae. Dry mucosa. NECK: Short neck. LUNGS: Decreased breath sounds. Occasional wheeze. HEART: RRR ABDOMEN: Right upper quadrant tenderness. EXTREMITIES: No edema. no tenderness, healed scar on the lower leg. NEUROLOGIC: No gross focality. DIAGNOSTIC DATA: Chest x-ray, no acute cardiopulmonary findings. Gallbladder ultrasound hepatomegaly, gallbladder sludge, no gallstones, borderline GB wall thickness, prominent CBD 7mm. No free fluid. Hemoglobin 17.2, white cell count 7.7, platelets 200. Sodium 140 potassium 4.4, chloride 102, BUN 17, creatinine 1 AST 74, ALT 170, alkaline phosphatase 122 ASSESSMENT: 1. Right upper quadrant pain for 2 weeks, abn LFTs. 2 to biliary colic ro CBD stone 2. History of fatty liver disease as per records 3. DM2, insulin requiring, suboptimal control as of recent outpx HgA1c of 9.5 (8 /201^ 4. asthma/COPD as per records, pulmo status at baseline as per px occ. exp wheezes noted on exam 5. Ongoing tobacco abuse. PLAN: GMF analgesia. Follow LFTs, MRCP. Surgery consult. RE persistent biliary colic Basal insulin adjusted for n.p.o. sips status, ISS BG goal 140-180 Hospital Course This is a 36 year old male with PMH of insulin dependent DM2, COPD, tobacco use disorder presents with abdominal pain and likely clinical cholecystitis Clinical Cholecystitis s/p cholecystectomy; POD #1 patient feels much better, abdominal pain resolved he is tolerating food appreciate surgery input can be d/c today will d/c with PCP f/u Insulin Dependent DM2 patient should continue home regimen Ha1c = 9.4%; uncontrolled, will need adjustment in medications as outpatient COPD continue Advair continue rescue inhaler as needed Tobacco Use Disorder will prescribe nicotine patch DVT ppx subq heparin FULL CODE Total time spent on discharge = This includes examination of the patient, discharge planning, medication reconciliation, and communication with other providers. Discharge Instructions Please follow-up with Dr. Velasco (covering for Dr. Bautista) on October 21 @ 10:50AM * You will be prescribed Percocet - only take this as needed - do not drive if you take this medication * Do not lift anything greater than 10lbs. * No driving x 3 days * You may shower * Follow-up with Dr. Ramos, general surgery in 1 week
[2016-10-18 15:28] VITALS: BP 134/81; PULSE 98; TEMP 36.7; O2SAT 95
== END 2016-10-18 15:22 | disposition home or self-care (01) ==
LOC: ENRESERVDT → ENRESERVTM → C.EDB 20:16 → C.MSN 10-17 01:05
PROVIDERS: ADMIT Internal Medicine; ATTEND Family Medicine
DX: K81.1 Chronic cholecystitis (principal); J44.9 Chronic obstructive pulmonary disease, unspecified; E66.9 Obesity, unspecified; F17.200 Nicotine dependence, unspecified, uncomplicated; E11.65 Type 2 diabetes mellitus with hyperglycemia; I10 Essential (primary) hypertension; E78.5 Hyperlipidemia, unspecified; G47.30 Sleep apnea, unspecified; Z68.41 Body mass index [BMI] 40.0-44.9, adult; Z91.030 Bee allergy status; Z79.4 Long term (current) use of insulin; Z82.49 Family history of ischemic heart disease and other diseases of the circulatory system; Z83.3 Family history of diabetes mellitus

== ENCOUNTER 2017-02-20 05:35 | Emergency (ER) | payer OTHER ==
[~2017-02-20] VITALS: Ht 193 cm; Wt 145.1 kg
[~2017-02-20 05:35] MED LIST changes: +NCDT21 TD; -TRAM-10 PO
[2017-02-20 05:41] VITALS: TEMP 36.6; Ht 193 cm; Wt 145.1 kg
[2017-02-20] MEDS ORDERED: KETOROLAC TROMETHAMINE 60 MG/2 ML VIAL IM STA (05:58)
[2017-02-20] MEDS ORDERED: OXYCODONE/ACETAMINOPHEN 5-325 TAB PO ONE (06:00)
--- NOTE | 2017-02-20 06:07 | EMERGENCY ROOM VISIT NOTE ---
History Report prepared by Rene: Amrita Johnson Under the Supervision of: Dr. Rossana Shaw D.O. First contact with patient: 05:48 Chief Complaint: FALL Stated Complaint: FELL AT WRK, L KNEE PAIN/SHOULDER/ARM/BACK WC History of Present Illness The patient is a 37 year old male who presents to the Emergency Room with complaints of a sudden fall that occurred prior to arrival. He currently rates his discomfort as a 10/10 in severity. The patient states that he had just stopped to get something to eat. He states that he tripped and fell over a bucket that he did not see. The patient states that hit his bilateral knees, noting bilateral knee pain. The patient reports left shoulder and left wrist pain. He states that he is experiencing lower back pain. The patient states that he is unsure if he hit his head, but states that he has a headache. The patient additionally associates neck pain. He states that he has been experiencing left arm numbness. The patient reports a history of diabetes, stating that he takes insulin. Source of History: patient Onset: prior to arrival Position: other (global) Quality: other (fall) Timing: other (sudden) Associated Symptoms: + headache, + neck pain, + back pain, + numbness (left arm) Note: Associated Symptoms: left shoulder pain, left wrist pain Review of Systems See HPI for pertinent positives & negatives. A total of 10 systems reviewed and were otherwise negative. Past Medical & Surgical Medical Problems: (1) Abdominal pain (2) Asthma (3) Bee sting allergy (4) Bronchitis (5) Diabetes mellitus, type II (6) Dyslipidemia (7) Hypertension (8) Sleep apnea (9) Testicular discomfort (10) Tobacco use Family History Diabetes mellitus BROTHER Liver failure MOTHER Pericarditis MOTHER Stroke FATHER Social History Smoking Status: Current Every Day Smoker Alcohol Use: occasionally Marital Status: Housing Status: lives with family Occupation Status: employed Current/Historical Medications Scheduled Albuterol Hfa (Ventolin Hfa), 2 PUFFS INH Q6H Atorvastatin (Lipitor), 80 MG PO HS Empagliflozin (Jardiance), 25 MG PO DAILY Epinephrine (Epipen), 0.3 MG IM UD Fish Oil ([place]-3), 1 CAP PO DAILY Fluticasone Prop/Salmeterol (Advair Diskus 250/50 60 Dose), 1 PUFF INH BID Insulin Aspart (Novolog Flexpen), UNITS SQ UD Insulin Glargine (Lantus Solostar), 60 UNITS SQ BID Allergies Coded Allergies: BEE STING (Verified Allergy, Severe, ANAPHYLAXIS, 02/20/17) Metformin (Verified Allergy, Unknown, unknown, 02/20/17) Physical Exam Vital Signs Date Time Temp Pulse Resp B/P (MAP) Pulse Ox O2 Delivery O2 Flow Rate FiO2 02/20/17 07:27 92 22 152/79 98 02/20/17 05:41 36.6 101 22 148/87 98 Room Air Physical Exam HEENT: Head - normocephalic and atraumatic. Pupils are equal, round, and reactive to light. Extraocular eye muscles are intact and sclera are anicteric. Ears - bilaterally patent canals with no evidence of hemotympanum. Nose - moist nasal mucosa without evidence of trauma or discharge. Mouth - moist buccal mucosa with no trauma to the teeth or signs of malocclusion. Neck: The neck is supple and there is no pain to palpation over the posterior cervical spine and no obvious step-offs or deformities. There is no JVD or tracheal deviation. Chest: There are no signs of deformities, contusions or abrasions to the chest wall. There is no obvious crepitus or paradoxical chest rise. Heart: Regular, rate, and rhythm. There is a normal S1 and S2 with no murmurs, clicks, or gallops appreciated. Lungs: Clear to auscultation bilaterally with no wheezes, rales, or rhonchi. Abdomen: Soft, completely nontender, nondistended, with good bowel sounds. There is no sign of trauma such as contusions, abrasions or penetrations. There are no palpable pulsatile masses or hepatosplenomegaly. There is no guarding, rigidity, or rebound noted. Pelvis: Stable to rock and compression. Extremities: Pain over medial aspect of left wrist, abrasions over both knees, pain to palpation over left knee. There are easily palpable peripheral pulses. Neuro: The patient is awake and alert and easily able to follow commands. Muscle strength is 5 out of 5 in all 4 extremities. Otherwise, neuro exam is unremarkable. Back: The entire thoracic, lumbar, and sacral spine were palpated. Pain over the left paraspinous muscles in lumbar spine. There are no obvious step-offs or deformities noted. There are no obvious signs of trauma such as contusions abrasions penetrations noted to the back. Medical Decision & Procedures ER Provider Diagnostic Interpretation: Radiology results as stated below per my review and the radiologist's interpretation: CERVICAL SPINE W/O CT DOSE: HISTORY: Trauma fall TECHNIQUE: Multiaxial CT images of the cervical spine were performed and reformatted in the sagittal and coronal plane without the use of contrast. A dose lowering technique was utilized adhering to the principles of ALARA. COMPARISON: None. FINDINGS: No fractures. No subluxation. Prevertebral soft tissues and the C1-C2 interval are intact. No pneumothorax. IMPRESSION: No fractures within the cervical spine. Mild degenerative disc change The above report was generated using voice recognition software. It may contain grammatical, syntax or spelling errors. Electronically signed by: Kannan Schwarz M.D. 02/20/2017 6:56 AM Dictated Date/Time: 02/20/2017 6:55 AM HEAD WITHOUT CONTRAST (CT) CT DOSE: 1291.37 mGy.cm HISTORY: Trauma fall TECHNIQUE: Multiaxial CT images of the head were performed without the use of intravenous contrast. A dose lowering technique was utilized adhering to the principles of ALARA. Comparison: None. Findings: The paranasal sinuses and mastoid air cells are clear. The calvarium and skull base are intact. The ventricles and sulci are within normal limits. There is no mass, hematoma, midline shift, or acute infarct. Impression: No acute intracranial abnormality. The above report was generated using voice recognition software. It may contain grammatical, syntax or spelling errors. Electronically signed by: Kannan Schwarz M.D. 02/20/2017 6:55 AM Dictated Date/Time: 02/20/2017 6:53 AM LEFT WRIST MIN 3 VIEWS ROUTINE CLINICAL HISTORY: left wrist pain - all on outstretched hand COMPARISON: None. DISCUSSION: The bones and joint spaces appear intact. There is no evidence of fracture, dislocation or bony disease. There is no evidence for soft tissue swelling. IMPRESSION: Negative study. The above report was generated using voice recognition software. It may contain grammatical, syntax or spelling errors. Electronically signed by: Kannan Schwarz M.D. 02/20/2017 6:53 AM Dictated Date/Time: 02/20/2017 6:52 AM LEFT KNEE 3 VIEWS CLINICAL HISTORY: include sunrise view - pain from fall trauma. Pain. COMPARISON: None. DISCUSSION: The bones and joint spaces appear intact. There is no evidence of fracture, dislocation or bony disease. There is no evidence for soft tissue swelling. IMPRESSION: Negative study. The above report was generated using voice recognition software. It may contain grammatical, syntax or spelling errors. Electronically signed by: Kannan Schwarz M.D. 02/20/2017 7:10 AM Dictated Date/Time: 02/20/2017 7:09 AM LEFT SHOULDER MIN 2 VIEWS ROUTINE CLINICAL HISTORY: fall pain COMPARISON: None. DISCUSSION: The bones and joint spaces appear intact. There is no evidence of fracture, dislocation or bony disease. There is no evidence for soft tissue swelling. IMPRESSION: Negative study. The above report was generated using voice recognition software. It may contain grammatical, syntax or spelling errors. Electronically signed by: Kannan Schwarz M.D. 02/20/2017 7:10 AM Dictated Date/Time: 02/20/2017 7:10 AM Medications Administered Medications (Trade) Dose Ordered Sig/Ca Route Start Time Stop Time Status Last Admin Dose Admin Ketorolac Tromethamine (Toradol Inj) 60 mg NOW STAT IM 02/20/17 05:58 02/20/17 05:59 DC 02/20/17 06:06 60 MG Oxycodone/ Acetaminophen (Percocet 5-325mg Tab) 2 tab NOW ONCE PO 02/20/17 06:00 02/20/17 06:01 DC 02/20/17 06:04 2 TAB Procedure IM Toradol PO Percocet ED Course 0552: Past medical records reviewed. The patient was evaluated in room A3. A complete history and physical exam was performed. 0558: Ordered Toradol Inj 60 mg IM. 0600: Ordered Oxycodone/Acetaminophen 2 tab PO. The patient went for CT scan of the brain and cervical spine and plain films of the left shoulder left wrist and left knee. 0714: I reevaluated the patient and he is resting comfortably. I discussed the exam findings with him and I discussed the treatment plan. He verbalized complete understanding and agreement. He is ready to go home. Medical Decision The patient is a 37 year old male who presents to the ED with a fall. Differential diagnosis includes head injury, c-spine injury, patellar fracture, wrist fracture, rotator cuff injury or shoulder fracture. The patient had moderate pain relief with the above medications. X-rays were negative. CT scan of the brain and cervical spine were negative. I've encouraged the patient to avoid strenuous activity and use NSAIDs for pain. Head Trauma GCS Score: 15 Medication Reconcilliation Current Medication List: was personally reviewed by me Blood Pressure Screening Patient's blood pressure: Elevated blood pressure Blood pressure disposition: Elevated BP felt to be situational, Did not require urgent referral Impression Primary Impression: Left wrist sprain Additional Impressions: Left shoulder strain Contusion of left knee Fall Scribe Attestation The scribe's documentation has been prepared under my direction and personally reviewed by me in its entirety. I confirm that the note above accurately reflects all work, treatment, procedures, and medical decision making performed by me. Departure Information Dispostion Home / Self-Care Referrals Kannan Bautista M.D. (PCP) Forms HOME CARE DOCUMENTATION FORM, IMPORTANT VISIT INFORMATION Patient Instructions ED Sprain Shoulder, ED Sprain Wrist, [facility] Additional Instructions Rest. Limit strenuous activity Ibuprofen - 800mg every 6 hours with food for pain Problem Qualifiers Primary Impression: Left wrist sprain Encounter type: initial encounter Qualified Codes: S63.502A - Unspecified sprain of left wrist, initial encounter Additional Impressions: Left shoulder strain Encounter type: initial encounter Qualified Codes: S46.912A - Strain of unspecified muscle, fascia and tendon at shoulder and upper arm level, left arm , initial encounter Contusion of left knee Encounter type: initial encounter Qualified Codes: S80.02XA - Contusion of left knee, initial encounter Fall Encounter type: initial encounter Qualified Codes: W19.XXXA - Unspecified fall, initial encounter
--- NOTE | 2017-02-20 06:54 | DIAGNOSTIC IMAGING REPORT ---
LEFT WRIST MIN 3 VIEWS ROUTINE CLINICAL HISTORY: left wrist pain - all on outstretched hand COMPARISON: None. DISCUSSION: The bones and joint spaces appear intact. There is no evidence of fracture, dislocation or bony disease. There is no evidence for soft tissue swelling. IMPRESSION: Negative study. The above report was generated using voice recognition software. It may contain grammatical, syntax or spelling errors. Electronically signed by: Kannan Schwarz M.D. 02/20/2017 6:53 AM Dictated Date/Time: 02/20/2017 6:52 AM
--- NOTE | 2017-02-20 06:56 | DIAGNOSTIC IMAGING REPORT ---
HEAD WITHOUT CONTRAST (CT) CT DOSE: 1291.37 mGy.cm HISTORY: Trauma fall TECHNIQUE: Multiaxial CT images of the head were performed without the use of intravenous contrast. A dose lowering technique was utilized adhering to the principles of ALARA. Comparison: None. Findings: The paranasal sinuses and mastoid air cells are clear. The calvarium and skull base are intact. The ventricles and sulci are within normal limits. There is no mass, hematoma, midline shift, or acute infarct. Impression: No acute intracranial abnormality. The above report was generated using voice recognition software. It may contain grammatical, syntax or spelling errors. Electronically signed by: Kannan Schwarz M.D. 02/20/2017 6:55 AM Dictated Date/Time: 02/20/2017 6:53 AM
--- NOTE | 2017-02-20 06:58 | DIAGNOSTIC IMAGING REPORT ---
CERVICAL SPINE W/O CT DOSE: HISTORY: Trauma fall TECHNIQUE: Multiaxial CT images of the cervical spine were performed and reformatted in the sagittal and coronal plane without the use of contrast. A dose lowering technique was utilized adhering to the principles of ALARA. COMPARISON: None. FINDINGS: No fractures. No subluxation. Prevertebral soft tissues and the C1-C2 interval are intact. No pneumothorax. IMPRESSION: No fractures within the cervical spine. Mild degenerative disc change The above report was generated using voice recognition software. It may contain grammatical, syntax or spelling errors. Electronically signed by: Kannan Schwarz M.D. 02/20/2017 6:56 AM Dictated Date/Time: 02/20/2017 6:55 AM
--- NOTE | 2017-02-20 07:11 | DIAGNOSTIC IMAGING REPORT ---
LEFT KNEE 3 VIEWS CLINICAL HISTORY: include sunrise view - pain from fall trauma. Pain. COMPARISON: None. DISCUSSION: The bones and joint spaces appear intact. There is no evidence of fracture, dislocation or bony disease. There is no evidence for soft tissue swelling. IMPRESSION: Negative study. The above report was generated using voice recognition software. It may contain grammatical, syntax or spelling errors. Electronically signed by: Kannan Schwarz M.D. 02/20/2017 7:10 AM Dictated Date/Time: 02/20/2017 7:09 AM
--- NOTE | 2017-02-20 07:12 | DIAGNOSTIC IMAGING REPORT ---
LEFT SHOULDER MIN 2 VIEWS ROUTINE CLINICAL HISTORY: fall pain COMPARISON: None. DISCUSSION: The bones and joint spaces appear intact. There is no evidence of fracture, dislocation or bony disease. There is no evidence for soft tissue swelling. IMPRESSION: Negative study. The above report was generated using voice recognition software. It may contain grammatical, syntax or spelling errors. Electronically signed by: Kannan Schwarz M.D. 02/20/2017 7:10 AM Dictated Date/Time: 02/20/2017 7:10 AM
[2017-02-20 07:27] VITALS: BP 152/79; PULSE 92; O2SAT 98
== END 2017-02-20 07:28 | disposition home or self-care (01) ==
LOC: C.EDB 05:36 → C.EDA 07:28
DX: S63.502A Unspecified sprain of left wrist, initial encounter (principal); S46.912A Strain of unspecified muscle, fascia and tendon at shoulder and upper arm level, left arm, initial encounter; S80.02XA Contusion of left knee, initial encounter; M54.5 Low back pain; W18.09XA Striking against other object with subsequent fall, initial encounter; Y99.0 Civilian activity done for income or pay; Y92.89 Other specified places as the place of occurrence of the external cause; E11.9 Type 2 diabetes mellitus without complications; Z79.4 Long term (current) use of insulin; J45.909 Unspecified asthma, uncomplicated; E78.5 Hyperlipidemia, unspecified; I10 Essential (primary) hypertension; G47.30 Sleep apnea, unspecified; F17.210 Nicotine dependence, cigarettes, uncomplicated; Z83.3 Family history of diabetes mellitus; Z83.79 Family history of other diseases of the digestive system; Z79.899 Other long term (current) drug therapy